=== PATIENT | female | born 1955 | race Caucasian/White ===

== ENCOUNTER 2020-03-01 01:58 | Outpatient (CLI) | payer MEDICARE, SELFPAY ==
[2020-03-01 17:59] LABS: SARS-CoV-2 RNA PCR Negative
== END 2020-03-01 01:59 | disposition home or self-care (01) ==
LOC: ANHCOVIDDT 01:59
PROVIDERS: PCP Internal Medicine; Visit Provider Internal Medicine Gastroenterology
DX: Z01.812 Encounter for preprocedural laboratory examination (principal); Z20.828 Contact with and (suspected) exposure to other viral communicable diseases
CPT/HCPCS: 87635; C9803; U0003

== ENCOUNTER 2020-03-04 00:30 | Day surgery (SDC) | payer MEDICARE, SELFPAY ==
[2020-02-27 13:48] VITALS: BMI 36.3
[2020-03-04 07:28] VITALS: BP 160/73; PULSE 102; RESP 18; TEMP 36.8; O2SAT 99
[2020-03-04 07:35] LABS: Glucose Point of Care 83 (65-105)
[2020-03-04] MEDS: LACTATED RINGERS 1,000 ML 150 ML IV CONT (07:40)
--- NOTE | 2020-03-04 07:56 | WPDGICN ---
Assessment and Plan Assessment and plan (1) History of colon polyps: Code(s): Z86.010 - Personal history of colonic polyps Status: Acute Assessment and Plan: Patient had several colon polyps at least 1 of which was rather large in size plan is for surveillance colonoscopy at this time. She also has a family history of colon polyps in her sister and uncle had colon cancer. Continued surveillance at intervals in the future is advised. GI Consult Note Consult date/time: 03/04/20 07:56 HPI: Jaimee Grimm is a 65 year old female Seen in evaluation at the request Dr. Jorge Luis Pollack. Patient has a history of colon polyps identified by colonoscopy in 2018. At that time found to have several adenomatous colon polyps. At least 1 of these polyps was rather large in size. Her family history is significant that her sister had colon polyps in uncle had colon cancer. Patient states that her current weight appetite bowel movements are normal. She denies abdominal pain. She has had no bleeding. PMFSH Social History Social History Smoking packs per day: 0.5 Smoking cigarettes per day: 10.0 Years smoked: 5 Smoking pack-years: 2.50 Smoking status: Former smoker Tobacco type: cigarettes Alcohol intake: current Drinks per week: 0 Alcohol use details: MAY HAVE 1 DRINK EVERY COUPLE OF MONTHS Substance use: never Substance use type: does not use Living arrangements: with family Spiritual care concerns: No Meds Home Medications and Allergies Home Medications Medication Instructions Recorded Confirmed Type aspirin [Adult Low Dose Aspirin] 81 mg PO DAILY 02/27/20 03/04/20 History atorvastatin 40 mg PO DAILY 02/27/20 03/04/20 History biotin 2,500 mcg PO DAILY 02/27/20 03/04/20 History lisinopril 10 mg PO DAILY 02/27/20 03/04/20 History mecobalamin (vitamin B12) 500 mcg PO DAILY 02/27/20 03/04/20 History metformin 500 mg PO BID 02/27/20 03/04/20 History Allergies Allergy/AdvReac Type Severity Reaction Status Date / Time Penicillins Allergy Unknown UNKNOWN Verified 03/04/20 07:25 Vital Signs Vital Signs - 24 hr 03/04/20 07:28 Temperature 98.2 F Pulse Rate 102 H Respiratory Rate 18 Blood Pressure 160/73 H Pulse Oximetry 99 Exam Narrative: Exam Narrative: Physical exam reveals patient to be alert. Vital signs stable. HEENT exam unremarkable. Lungs are clear to auscultation and percussion. Heart is without murmur or extra sounds. Abdominal exam bowel sounds are present soft nontender with no organomegaly. Digital external rectal exam is normal.
--- NOTE | 2020-03-04 08:12 | WPDANESEPPF ---
Anes - Initial Pre Proc Eval Procedure: Operation Date: 03/04/20 08:30 Proposed Procedures p Screening Colonoscopy - Vishal Macias MD Date/Time: 03/04/20 08:12 Surgeon: Vishal Macias MD Pre Op Diagnosis: Hx Of Colon Polyps Patient Data Age: 65 Gender: F Height: 5 ft 6 in Weight: 102.6 kg Last Vital Signs Temp 98.2 F 03/04/20 07:28 Pulse 102 H 03/04/20 07:28 Resp 18 03/04/20 07:28 BP 160/73 H 03/04/20 07:28 Pulse Ox 99 03/04/20 07:28 Allergies Allergy/AdvReac Type Severity Reaction Status Date / Time Penicillins Allergy Unknown UNKNOWN Verified 03/04/20 07:25 Home Medications Medication Instructions Recorded Confirmed Type aspirin [Adult Low Dose Aspirin] 81 mg PO DAILY 02/27/20 03/04/20 History atorvastatin 40 mg PO DAILY 02/27/20 03/04/20 History biotin 2,500 mcg PO DAILY 02/27/20 03/04/20 History lisinopril 10 mg PO DAILY 02/27/20 03/04/20 History mecobalamin (vitamin B12) 500 mcg PO DAILY 02/27/20 03/04/20 History metformin 500 mg PO BID 02/27/20 03/04/20 History Laboratory Tests 03/04/20 07:33 POC Capillary Glucose 83 mg/dl mg/dl (65-105) Patient hx anesthesia problems: none Family hx anesthesia problems: none PMFSH Past Medical History Medical History (Updated 03/04/20 @ 08:15 by Lonnie Carballo MD) Breast cancer, left breast history of in the past CAD (coronary artery disease) Hyperlipidemia Hypertension Surgical History Surgical History (Updated 03/04/20 @ 08:15 by Lonnie Carballo MD) Stented coronary artery Social History Social History Smoking packs per day: 0.5 Smoking cigarettes per day: 10.0 Years smoked: 5 Smoking pack-years: 2.50 Smoking status: Former smoker Tobacco type: cigarettes Alcohol intake: current Drinks per week: 0 Alcohol use details: MAY HAVE 1 DRINK EVERY COUPLE OF MONTHS Substance use: never Substance use type: does not use Living arrangements: with family Spiritual care concerns: No Anes - Eval Final PreProcedure Day of Procedure 10/06/20 08:12 Patient weight: obese Heart: regular rate and rhythm Lungs: clear to auscultation Airway: Mallampati scale class II Neurological: alert and oriented Last oral intake: >/= 8 hours ASA classification: III Emergent: no Anesthetic plan: proceed Anesthesia type and monitoring: general GIVS and standard monitoring Informed Consent: The patient's anesthetic plan and its attendant risks and benefits were discussed with the patient/family/POA. Questions were solicited and answers provided to the satisfaction of the patient/family/POA.
[2020-03-04 09:01] VITALS: BP 96/52; PULSE 77; RESP 19; O2SAT 98
[2020-03-04 09:11] VITALS: BP 104/49; PULSE 71; RESP 19; O2SAT 98
[2020-03-04 09:21] VITALS: BP 139/75; PULSE 72; RESP 16; O2SAT 98
== END 2020-03-04 09:39 | disposition home or self-care (01) ==
PROVIDERS: PCP Internal Medicine; Visit Provider Internal Medicine Gastroenterology
PROC: 0DJD8ZZ Inspection of Lower Intestinal Tract, Via Natural or Artificial Opening Endoscopic (ICD-10-PCS; CPT 45378; principal; 2020-03-04 08:30)
DX: Z12.11 Encounter for screening for malignant neoplasm of colon (principal); K64.8 Other hemorrhoids; I25.10 Atherosclerotic heart disease of native coronary artery without angina pectoris; E78.5 Hyperlipidemia, unspecified; I10 Essential (primary) hypertension; Z95.5 Presence of coronary angioplasty implant and graft; Z87.891 Personal history of nicotine dependence; Z85.3 Personal history of malignant neoplasm of breast; Z86.010 Personal history of colon polyps; Z83.71 Family history of colonic polyps; E66.9 Obesity, unspecified; Z68.36 Body mass index [BMI] 36.0-36.9, adult
CPT/HCPCS: G0105; J2704; J7120

== ENCOUNTER 2021-03-27 01:16 | Day surgery (SDC) | payer MEDICARE, SELFPAY ==
[2021-03-19 11:00] VITALS: BMI 37.0
[2021-03-27 11:50] VITALS: BP 155/84; PULSE 79; RESP 17; TEMP 35.9; O2SAT 96; BMI 37.7
--- NOTE | 2021-03-27 11:53 | WPDANESEPPF ---
Anes - Initial Pre Proc Eval Procedure: Operation Date: 03/27/21 13:00 Proposed Procedures p Esophagogastroduodenoscopy - Vishal Macias MD Date/Time: 03/27/21 11:53 Surgeon: Vishal Macias MD Pre Op Diagnosis: URQP Patient Data Age: 66 Gender: F Height: 1.68 m Weight: 106 kg Last Vital Signs Temp 35.9 C L 03/27/21 11:50 Pulse 79 03/27/21 11:50 Resp 17 03/27/21 11:50 BP 155/84 H 03/27/21 11:50 Pulse Ox 96 03/27/21 11:50 Allergies Allergy/AdvReac Type Severity Reaction Status Date / Time Penicillins Allergy Unknown UNKNOWN Verified 03/27/21 11:49 Home Medications Medication Instructions Recorded Confirmed Type aspirin [Adult Low Dose Aspirin] 81 mg PO DAILY 02/27/20 03/27/21 History atorvastatin 40 mg PO DAILY 02/27/20 03/27/21 History biotin 2,500 mcg PO DAILY 02/27/20 03/27/21 History lisinopril 10 mg PO DAILY 02/27/20 03/27/21 History mecobalamin (vitamin B12) 500 mcg PO DAILY 02/27/20 03/27/21 History metformin 500 mg PO BID 02/27/20 03/27/21 History omeprazole 20 mg PO BID 03/19/21 03/27/21 History Patient hx anesthesia problems: none Family hx anesthesia problems: none Results Review: All pre-operative results and documents have been reviewed as part of the pre-operative evaluation. [facility] Past Medical History Medical History Breast cancer, left breast history of in the past CAD (coronary artery disease) Hyperlipidemia Hypertension Surgical History Surgical History Stented coronary artery Social History Social History Smoking packs per day: 0.5 Smoking cigarettes per day: 10.0 Years smoked: 5 Smoking pack-years: 2.50 Smoking status: Former smoker Tobacco type: cigarettes Alcohol intake: current Drinks per week: 0 Alcohol use details: MAY HAVE 1 DRINK EVERY COUPLE OF MONTHS Substance use: never Substance use type: does not use Living arrangements: alone Spiritual care concerns: No Anes - Eval Final PreProcedure Day of Procedure 03/27/21 11:53 Patient weight: obese Heart: regular rate and rhythm Lungs: clear to auscultation Airway: Mallampati scale class II Neurological: alert and oriented Last oral intake: >/= 8 hours ASA classification: III Emergent: no Anesthetic plan: proceed Anesthesia type and monitoring: general GIVS and standard monitoring Results Review: All pre-operative results and documents have been reviewed as part of the pre-operative evaluation. Informed Consent: The patient's anesthetic plan and its attendant risks and benefits were discussed with the patient/family/POA. Questions were solicited and answers provided to the satisfaction of the patient/family/POA.
[2021-03-27] MEDS: LACTATED RINGERS 1,000 ML 150 ML IV CONT (11:54)
[2021-03-27 11:58] LABS: Glucose Point of Care 81 mg/dl (65-105)
--- NOTE | 2021-03-27 12:11 | WPDGICN ---
Assessment and Plan Assessment and plan (1) RUQ pain: Code(s): R10.11 - Right upper quadrant pain Status: Acute Assessment and Plan: Patient has burning right upper quadrant pain that has been present for several weeks. Agree with trial of omeprazole. A bland diet. An EGD will be performed because of prior history of inflammation in this area. Further recommendations will be given after endoscopy. She does have a distant history of cholecystectomy. (2) History of colon polyps: Code(s): Z86.010 - Personal history of colonic polyps Status: Acute Assessment and Plan: Colon polyps removed from the colon 2019. Anticipate follow-up colonoscopy at 5 year intervals. Expected to have a follow-up colonoscopy 2024. GI Consult Note Consult date/time: 03/27/21 12:11 HPI: Jaimee Grimm is a 66 year old female Presents for EGD. Patient seen at the request of Dr. Radha Aden. Patient reports a 2 week history of right upper quadrant abdominal pain. She states pain is somewhat burning in nature. She states she had similar pain in the past. Endoscopy Dr. White revealed inflammation. It is uncertain where the inflammation was located. Patient was placed on omeprazole with good improvement of symptoms. Patient currently has restarted proton pump inhibitor therapy with incomplete resolution of her burning pain. She denies any specific findings. She does have a distant history of cholecystectomy. One year ago had a colonoscopy and was found to have colon polyps. She presents today for EGD. Review of Systems Review of Systems: All systems reviewed & are unremarkable except as noted in HPI and below PMFSH Past Medical History Medical History Breast cancer, left breast history of in the past CAD (coronary artery disease) Hyperlipidemia Hypertension Surgical History Surgical History Stented coronary artery Social History Social History Smoking packs per day: 0.5 Smoking cigarettes per day: 10.0 Years smoked: 5 Smoking pack-years: 2.50 Smoking status: Former smoker Tobacco type: cigarettes Alcohol intake: current Drinks per week: 0 Alcohol use details: MAY HAVE 1 DRINK EVERY COUPLE OF MONTHS Substance use: never Substance use type: does not use Living arrangements: alone Spiritual care concerns: No Meds Home Medications and Allergies Home Medications Medication Instructions Recorded Confirmed Type aspirin [Adult Low Dose Aspirin] 81 mg PO DAILY 02/27/20 03/27/21 History atorvastatin 40 mg PO DAILY 02/27/20 03/27/21 History biotin 2,500 mcg PO DAILY 02/27/20 03/27/21 History lisinopril 10 mg PO DAILY 02/27/20 03/27/21 History mecobalamin (vitamin B12) 500 mcg PO DAILY 02/27/20 03/27/21 History metformin 500 mg PO BID 02/27/20 03/27/21 History omeprazole 20 mg PO BID 03/19/21 03/27/21 History Allergies Allergy/AdvReac Type Severity Reaction Status Date / Time Penicillins Allergy Unknown UNKNOWN Verified 03/27/21 11:49 Vital Signs Vital Signs - 24 hr 03/27/21 11:50 Temperature 96.7 F L Pulse Rate 79 Respiratory Rate 17 Blood Pressure 155/84 H Pulse Oximetry 96 Exam Narrative: Physical exam reveals patient to be alert. Vital signs stable. HEENT exam is unremarkable. Patient is anicteric. Lungs are clear to auscultation and percussion. Heart is without murmur or extra sounds. Abdomen is bowel sounds are present soft no localized tenderness no masses elicited. Digital rectal exam deferred today.
[2021-03-27 12:25] VITALS: BP 108/61; PULSE 74; RESP 18; O2SAT 99
[2021-03-27 12:35] VITALS: BP 127/67; PULSE 79; RESP 22; O2SAT 99
[2021-03-27 12:45] VITALS: BP 111/64; PULSE 81; RESP 22; O2SAT 81
== END 2021-03-27 12:56 | disposition home or self-care (01) ==
PROVIDERS: PCP Internal Medicine; Visit Provider Internal Medicine Gastroenterology
PROC: 0DJ08ZZ Inspection of Upper Intestinal Tract, Via Natural or Artificial Opening Endoscopic (ICD-10-PCS; CPT 43235; principal; 2021-03-27 13:00)
DX: R10.11 Right upper quadrant pain (principal); I10 Essential (primary) hypertension; Z86.010 Personal history of colon polyps; Z85.3 Personal history of malignant neoplasm of breast; Z95.5 Presence of coronary angioplasty implant and graft; Z87.891 Personal history of nicotine dependence; Z90.49 Acquired absence of other specified parts of digestive tract; Z79.899 Other long term (current) drug therapy; Z79.82 Long term (current) use of aspirin
CPT/HCPCS: 43239; 82948; 87081; J2001; J2704; J7120

== ENCOUNTER 2024-12-31 00:32 | Day surgery (SDC) | payer MEDICARE, SELFPAY ==
[2024-12-24 15:05] VITALS: BMI 38.7
--- NOTE | 2024-12-24 15:06 | PC.NURSE ---
Report to the Outpatient Waiting Room, entrance under the green pavilion located off [facility], at time _2pm_ on date _[id number]_. Planned Procedure Time: _3pm_.? Time changes happen often and if your time is changed the preop area will call you the afternoon before. - You and your visitor will be asked to self-screen and do not enter if you have any COVID symptoms. Please call surgeon if you need to reschedule. - A mask is optional within the hospital at this time. No smoking, or chewing tobacco (or any form of nicotine). Ok for breakfast and light lunch. Take only the following medications with a SIP of water on the morning of surgery: ___Medications OK____ DO NOT STOP ANY OF YOUR OTHER PRESCRIPTION MEDICATIONS PRIOR TO SURGERY EXCEPT THE FOLLOWING Hold all vitamins and supplements for 3 days per anesthesiologist. Medications to discontinue per physician Date to take last dose Please no make-up, nail romanian, hairspray, perfume, deodorant, or body powder the day of surgery.? No jewelry (including any body piercings) or valuables the day of surgery, leave them at home.? Please take a shower or bath the night before, or the morning of, surgery with an antibacterial soap.? Wear comfortable, loose fitting clothing.? - Jewelry must be removed prior to entering the operating room.? Rings and piercings that are not removed may be cut off. - The hospital will not accept responsibility for valuables.? - Please leave all valuables, including medications, at home the day of surgery. OK to drive. Follow any additional instructions given to you from your surgeon. Telephone instructions given to __Angeliady___and asked if any additional questions and then verbalized understanding. Patient advised to call surgeon office or pre surgery nurse liaison [phone] if any additional questions.
[2024-12-31] VITALS (7 sets, daily range): BP systolic 152–193; BP diastolic 61–88; PULSE 83–98; RESP 12–20; TEMP 37; O2SAT 97–99; BMI 39.1
--- NOTE | 2024-12-31 15:15 | WPDHPUPDATE1 ---
History and Physical Update Update Date/Time: 12/31/24 15:15 History and Physical has been reviewed, including an updated exam of the patient. There are NO changes in the patient's condition. Risks, benefits, and alternatives have been discussed and questions answered. Patient agrees to proceed with procedure.
[2024-12-31] MEDS: LIDO 1%/EPINEPHRINE 1:100,000 50 ML VIAL 30 ML INFILTRATE (15:17)
--- NOTE | 2024-12-31 15:41 | S_PTH ---
PATIENT: Jaimee Grimm LOC: [facility]#:[id number] AGE/SX: 69/F ROOM: RE12/31/[address]: Mata Kincaid MD : [id number] BED: DIS: 12/31/2024 SPEC #: [id number] RECD: 01/01/25 08:18 STATUS: AMADOR REQ #: [id number] SANTHOSH: 12/31/24 15:[address]: Mata Kincaid DEPT: [facility] Surgical RECD BY: Ravin Hayes ENTERED: 01/01/25 08:19 SP TYPE: Surgical OTHR DR: Carlos PollackMD Tissues: A - Skin Procedures: Hematoxylin and Eosin Stain Gross and Microscopic Level 4
--- NOTE | 2024-12-31 16:27 | W.PM.PROC2 ---
Procedure Note - Detailed Date of Procedure 12/31/24 Pre-op Diagnosis Right lower leg skin lesion Post-op Diagnosis Same Procedure Performed Excision right lower extremity skin lesion with 5cm intermediate layered wound closure. Surgeon Mata Kincaid MD Anesthesia Local Indications Patient is a 69-year-old female who for last couple of months has been having a slowly enlarging skin lesion on the right anterior mid tibia region. It has some superficial irritation but no obvious ulceration. She presents now for excision. Findings Patient 1.3x1cm well-circumscribed skin lesion in the mid tibia region. I excised it with a minimum of 0.3cm circumferential margin. Description of Procedure After informed consent was obtained patient brought to the operating room she was placed supine position and then the right lower extremity from the knee to the ankle was then prepped in the usual sterile fashion. A time-out was then performed correctly identifying the patient as well as procedure to be performed. Site marking was identified. She was not given any IV antibiotics due to no IV being started. I then anesthetized the area around the skin lesion utilizing 1% lidocaine mixed with 0.5% Marcaine 50 50 mixture with some epinephrine. Once adequate anesthesia had been achieved I then proceeded to make a transverse elliptical incision around the skin lesion. I made sure that I had at least a 0.3cm minimal circumferential margin around the skin lesion. The skin lesion measured 1.3x1cm. The initial excision was carried deeply down through the dermis of the skin and the subcutaneous tissues. Then utilized electrocautery I completely excised off the ellipse of skin and subcutaneous tissues encompassing the whole skin lesion. It was sent to pathology for examination. Then achieved hemostasis in the wound utilized electrocautery. Then irrigated sterile saline solution. Hemostasis was good. I then proceeded to close incision with a multilayered intermediate layered wound closure. Interrupted layers of 2-0 Vicryl suture placed in deeper subcutaneous tissues. This is then followed by layers of interrupted 3-0 Vicryl suture in the deep dermal layer. The skin edges were then approximated utilizing a running subcuticular 4-0 Monocryl suture. The length of the skin in closure was 5cm. Areas then cleaned the skin glue was applied. The patient tolerated the procedure well no complications. All sponges, needles, and instrument counts were correct at the end procedure. EBL was __5_cc. The patient was awakened and taken to recovery in stable and satisfactory condition. Implants None Estimated Blood Loss 5 Drains No Packing No Pathology Yes (Right lower extremity skin lesion to pathology) Complications No immediate complications Condition Stable Disposition PACU [facility] Billing Surgery - Charge Forward: Surgery Billing
== END 2024-12-31 16:35 | disposition home or self-care (01) ==
PROVIDERS: PCP Internal Medicine; Visit Provider Surgery
PROC: (CPT 11402; principal; 2024-12-31 14:45)
DX: C44.722 Squamous cell carcinoma of skin of right lower limb, including hip (principal); L57.8 Other skin changes due to chronic exposure to nonionizing radiation; L30.8 Other specified dermatitis; E78.5 Hyperlipidemia, unspecified; I10 Essential (primary) hypertension; E11.9 Type 2 diabetes mellitus without complications; I25.10 Atherosclerotic heart disease of native coronary artery without angina pectoris; Z79.84 Long term (current) use of oral hypoglycemic drugs; Z98.890 Other specified postprocedural states; Z87.891 Personal history of nicotine dependence; Z85.3 Personal history of malignant neoplasm of breast; Z80.9 Family history of malignant neoplasm, unspecified; Z82.49 Family history of ischemic heart disease and other diseases of the circulatory system
CPT/HCPCS: 11402; 12032; 88305; A9270; J2004

== ENCOUNTER 2025-04-05 00:38 | Day surgery (SDC) | payer MEDICARE, SELFPAY ==
[2025-04-03 14:45] VITALS: BMI 39.9
--- OUTSIDE RECORDS SUMMARY | 2025-04-05 00:41 | XMS_ITS | Data Portability ---
Author Organization [place] [facility] [employer], Main Office Address [address] [place] [address] Assessment Encounter Date Assessment Date Assessment LastModified by Organization Details LastModified Time 09/15/2023 09/15/2023 The patient has moderately severe primary osteoarthritis right knee a little less so on the left knee with narrowing in the medial compartments mostly. We talked about treatment options today in detail for her right knee pain she wanted to proceed with an oral anti-inflammatory we will get her set up with Celebrex 200 mg a day. She also wanted try a shot of cortisone therefore under sterile conditions I injected the patient's right knee joint in the office with 4 cc 0.5% bupivacaine and 20 mg of Kenalog. Patient tolerated the procedure well. We did talk about the possibility of gel shots these worked very well for her many years ago. I have advised her to give this 6 weeks or so see how she does with the cortisone if her symptoms continue we could consider gel shots she would have to give us a call let us know what she wants to do. We could do cortisone again every 3 months if necessary as well. The patient voiced understanding and agrees with the above plan she will call for any further problems difficulties or questions. [email or web address] Not available 09/15/2023 13:57:40 Plan of Treatment Reminders Order Date Submit Date Provider Last Modified By Organization Details Last Modified Time Details Appointments None recorded. Lab vitamin D, 25-hydroxy, total, serum 2024 025 [email or web address] [facility], [address] [facility], [place], [address], 18:32:01 HbA1c (hemoglobin A1c), blood 2024 025 [email or web address] [facility], [address], [place], [address], 18:32:01 microalbumi n, urine 2024 025 [email or web address] [facility], [address], [place], [address], 18:32:01 lipid panel, serum 2024 025 [facility], [address], [place], [address], 18:32:00 TSH, ultra-sensi tive, serum 2024 025 [email or web address] [facility], [address] [facility], [place], [address], 18:32:00 unlisted lab - T4, free 2024 025 [email or web address] [facility], [address] [facility], [facility], [place], [address], 18:32:00 CMP, serum or plasma 2024 025 [facility], [address] [facility], [facility], [place], [address], 18:32:00 CBC w/ auto diff 2024 025 [email or web address] [facility], [address], [place], [address], 18:32:00 HbA1c (hemoglobin A1c), blood 2024 025 HONEY [facility], [address], [place], [address], 10:44:00 TSH, ultra-sensi tive, serum 2024 025 HONEY [facility], [address] [facility], [facility], [place], [address], 5 10:44:01 unlisted lab - T4, free 2024 025 HONEY [facility], [address] [facility], [facility], [place], [address], 5 10:44:03 CBC w/ auto diff 2024 025 HONEY [facility], [address] [facility], [facility], [place], [address], 5 10:43:56 CMP, serum or plasma 2024 025 HONEY [facility], [address] [facility], [facility], [place], [address], 5 10:43:58 lipid panel, serum 2024 025 HONEY [facility], [address] [facility], [facility], [place], [address], 10:43:59 Referral None recorded. Procedures injection/a spiration joint/bursa (PROC) 2023 024 [email or web address] In-Office Order, Internal Use Only DO Not Attach Compendium DO Not Attach Compendium, Do Not Delete/merge, [id number] 4 13:41:01 Surgeries None recorded. Imaging XR, knee 2023 024 [email or web address] [facility] [place], [address], [place], [address], 4 15:49:54 Medication Orders Bactrim DS 800 mg-160 mg tablet 2024 025 L[facility]ANE [id number], [address], [place], [id number], 5 15:57:29 celecoxib 200 mg capsule 2023 [address] [facility] [id number], 2 [facility], [place], [place], [id number], 5 11:36:02 bupivacaine HCl 0.5 % (5 mg/mL) injection solution [address] [id number], [address], [place], [place], [id number], 5 11:35:59 Kenalog 10 mg/mL suspension for injection [address] [id number], 2 [facility], [place], [place], [id number], 5 11:36:06 Patient TargetsNo targets recorded. Patient Instructions Encounter Date Encounter Id Patient Instructions Last Modified By Organization Details Last Modified Time 02/28/2024 [id number] dementia rating scale-2* [email or web address] Not available 02/29/2024 09:02:03 alcohol misuse* [email or web address] Not available 02/29/2024 09:02:03 depression screening* Not available 02/29/2024 09:02:03 multi-dimensiona l health assessment questionnaire* [email or web address] Not available 02/29/2024 09:02:03 Personalized [facility] Plan and Screening Recommendations Advance Directives - Do you have one? Yes Advance Directives - Do we have your advance directive on file in your health record? No, please bring in a copy at your earliest convenience Primary Prevention/Interven tion (prevents or decreases the chance of common diseases from occurring) Smoking Risk: Non Smoker Alcohol Misuse Screening: Negative Weight: Overweight try to lose 10% of your body weight Physical activity: Need more exercise/physical activity Nutrition: Average Eat heart healthy diet Fall Risk (screened today): Low Vaccines Pneumococcal: No further needed Influenza: Your next one in the fall of this year Chronic Disease Risks Stroke: Intermediate Risk Active diagnosis, Continue current treatment plan Heart Attack: Intermediate Risk Active diagnosis, Continue current treatment plan Clogging of the Arteries: Intermediate Risk Active diagnosis, Continue current treatment plan Diabetes: Intermediate Risk Active diagnosis, Continue current treatment plan Secondary Prevention/Interven tion (detects treatable diseases before they may cause symptoms, disability, or ) Breast Cancer Screening with mammogram: No screening necessary Cervical/Uterine/Ov crispin Cancer Screening: No screening necessary Osteoporosis Screening: up to date Date Screening Last Performed: __2022 Colon Cancer Screening: Colonoscopy due 2024 Date Screening Last Performed: _2019___ Eye Disease Screening: Your next exam in: goes yearly Dementia Risk: Low I have no recommendations Depression Screening: Negative I have no recommendations [email or web address] Not available 02/28/2024 10:53:14 [facility] stable. Follow-up for coronary artery disease, essential hypertension, type 2 diabetes, GERD and obesity class two. Switching the lisinopril to losartan 25 mg daily. All clinically stable. Will continue with current Rx and check blood work GERD follow-up in six months Follow Up: 6 Months Approximate Date: 08/26/2024 Portions of the record may have been created with voice recognition software. Occasional wrong-word or s ound-a-like substitutions may have occurred due to the inherent limitations of voice recognition software. Read the chart carefully and recognize, using context, where substitutions have occurred. [email or web address] Not available 02/28/2024 17:28:50 09/25/2024 [id number] Follow-up miguel ry artery disease, essential hypertension, hyperlipidemia, type 2 diabetes all clinically stable. Will switch from the semaglutide to Mounjaro to see if there is any improvement and better tolerated. Started 2.5 mg weekly. Will check a CBC, CMP, lipid, thyroid and hemoglobin A1c level. Follow-up in six months Additional Orders - Directives - Recommendations 1. have Shaista make out a script for Mounjaro 2.5 mg once weekly Follow Up: 6 Months Approximate Date: 03/24/2025 Portions of record are template driven. When necessary additional context will be provided. Additionally some portions have been created with voice recognition software. Occasional wrong-word or s ound-a-like substitutions may have occurred due to the inherent limitations of voice recognition software. Read the chart carefully and recognize, using context, where substitutions may have occurred. Created: Carlos Pollack M.D. 09.25.2024 10:55 AM [email or web address] Not available 09/25/2024 11:55:51 12/03/2024 [id number] Probable cyst ri ght lower leg with some surrounding erythema possibly suggesting some mild infection. Will cover with some Bactrim DS one b.i.d.. Instructed patient there is no improvement will need to consider surgical excision of the area Keep Appointment: Tue 10:00 AM [place] Portions of record are template driven. When necessary additional context will be provided. Additionally some portions have been created with voice recognition software. Occasional wrong-word or s ound-a-like substitutions may have occurred due to the inherent limitations of voice recognition software. Read the chart carefully and recognize, using context, where substitutions may have occurred. Created: Carlos Pollack M.D. 12.03.2024 02:57 PM [email or web address] Not available 12/03/2024 15:57:33 03/26/2025 [id number] Medicare [facility] evaluation risk assessment stable. Follow-up for coronary artery disease, hypertension, hyperlipidemia, type 2 diabetes, check blood work consisting of CBC, CMP, lipid, thyroid B12 and vitamin-D level. Will continue on current Rx and follow-up in six months Advised on FDA Recommended Immunizations including but not limited to Influenza, COVID,Tetanus,TDAP, Pneumococcal,RSV and Shingles Additional Orders - Directives - Recommendations Recommended Testing 1. DEXA Scan 2. Colonoscopy Immunizations and Vaccines 1. 2023-01 INFLUENZA 2. 2021-03 COVID BOOSTER MODERNA 3. PCV20 or PCV21 Recommended 4. RSV Recommended 5. Shingrix Recommended 6. Tetanus or TD Recommended Recommended Vaccine and Immunizations Discussed With Patient! Follow Up: 6 Months Approximate Date: 09/22/2025 Portions of record are template driven. When necessary additional context will be provided. Additionally some portions have been created with voice recognition software. Occasional wrong-word or s ound-a-like substitutions may have occurred due to the inherent limitations of voice recognition software. Read the chart carefully and recognize, using context, where substitutions may have occurred. Created: Carlos Pollack M.D. 03.26.2025 10:30 AM [email or web address] Not available 03/26/2025 11:30:24 Reason for Referral None Reported. Results Created Date Observation Date Name Description Value Unit Range Abnormal Flag Note LastModifiedBy Organization Detail LastModifiedTime 09/26/19 25 09/26/2024 CBC WITH DIFFE RENTI AL/PL ATELE T WBC 8.4 x10e3 /uL 3.4-10 .8 normal Not Available [facility] [address] [facility], [place], [address], 09/26/2024 10:43:56 09/26/19 25 09/26/2024 CBC WITH DIFFE RENTI AL/PL ATELE T RBC 4.55 x10e6 /uL 3.77-5 .28 normal Not Available [facility] [address] [facility], [place], [address], 09/26/2024 10:43:56 09/26/19 25 09/26/2024 CBC WITH DIFFE RENTI AL/PL ATELE T hemoglobin 12.9 g/dL 11.1-1 5.9 normal Not Available [facility] [address] [facility], [place], [address], 09/26/2024 10:43:56 09/26/19 25 09/26/2024 CBC WITH DIFFE RENTI AL/PL ATELE T hematocrit 40.8 % 34.0-4 6.6 normal Not Available [facility]) [address] [place], [address], 09/26/2024 10:43:56 09/26/19 25 09/26/2024 CBC WITH DIFFE RENTI AL/PL ATELE T MCV 90 fL 79-97 normal Not Available [facility] [address] [place], [address], 09/26/2024 10:43:56 09/26/19 25 09/26/2024 CBC WITH DIFFE RENTI AL/PL ATELE T MCH 28.4 pg 26.6-3 3.0 normal Not Available [facility] [address] [facility], [place], [address], 09/26/2024 10:43:56 09/26/19 25 09/26/2024 CBC WITH DIFFE RENTI AL/PL ATELE T MCHC 31.6 g/dL 31.5-3 5.7 normal Not Available [facility] [address] [facility], [place], [address], 09/26/2024 10:43:56 09/26/19 25 09/26/2024 CBC WITH DIFFE RENTI AL/PL ATELE T RDW 13.1 % 11.7-1 5.4 Not Available [facility] [address] [facility], [place], [address], 09/26/2024 10:43:56 09/26/19 25 09/26/2024 CBC WITH DIFFE RENTI AL/PL ATELE T platelets 321 x10e3 /uL 150-45 0 normal Not Available [facility] [address] [facility], [place], [address], 09/26/2024 10:43:56 09/26/19 25 09/26/2024 CBC WITH DIFFE RENTI AL/PL ATELE T neutrophils 58 % not estab. normal Not Available [facility] [address] [facility], [place], [address], 09/26/2024 10:43:56 09/26/19 25 09/26/2024 CBC WITH DIFFE RENTI AL/PL ATELE T lymphs 31 % not estab. normal Not Available [facility] [address] [facility], [place], [address], 09/26/2024 10:43:56 09/26/19 25 09/26/2024 CBC WITH DIFFE RENTI AL/PL ATELE T monocytes 8 % not estab. normal Not Available [facility] [address] [place], [address], 09/26/2024 10:43:56 09/26/19 25 09/26/2024 CBC WITH DIFFE RENTI AL/PL ATELE T eos 2 % not estab. normal Not Available [facility] [address] [place], [address], 09/26/2024 10:43:56 09/26/19 25 09/26/2024 CBC WITH DIFFE RENTI AL/PL ATELE T basos 0 % not estab. normal Not Available [facility] [address] [place], [address], 09/26/2024 10:43:56 09/26/19 25 09/26/2024 CBC WITH DIFFE RENTI AL/PL ATELE T immature cells EMERGENCY ROOM NURSE Not Available [facility] [address] [place], [address], 09/26/2024 10:43:56 09/26/19 25 09/26/2024 CBC WITH DIFFE RENTI AL/PL ATELE T neutrophils (absolute) 5.0 x10e3 /uL 1.4-7. 0 normal Not Available [facility] [address] [place], [address], 09/26/2024 10:43:56 09/26/19 25 09/26/2024 CBC WITH DIFFE RENTI AL/PL ATELE T lymphs (absolute) 2.6 x10e3 /uL 0.7-3. 1 normal Not Available [facility] [address] [place], [address], 09/26/2024 10:43:56 09/26/19 25 09/26/2024 CBC WITH DIFFE RENTI AL/PL ATELE T monocytes(ab solute) 0.7 x10e3 /uL 0.1-0. 9 normal Not Available [facility] [address] [place], [address], 09/26/2024 10:43:56 09/26/19 25 09/26/2024 CBC WITH DIFFE RENTI AL/PL ATELE T eos (absolute) 0.1 x10e3 /uL 0.0-0. 4 normal Not Available [facility] [address] [facility], [place], [address], 09/26/2024 10:43:56 09/26/19 25 09/26/2024 CBC WITH DIFFE RENTI AL/PL ATELE T baso (absolute) 0.0 x10e3 /uL 0.0-0. 2 normal Not Available [facility] [address] [facility], [place], [address], 09/26/2024 10:43:56 09/26/19 25 09/26/2024 CBC WITH DIFFE RENTI AL/PL ATELE T immature granulocytes 1 % not estab. Not Available [facility] [address] [facility], [place], [address], 09/26/2024 10:43:56 09/26/19 25 09/26/2024 CBC WITH DIFFE RENTI AL/PL ATELE T immature grans (abs) 0.0 x10e3 /uL 0.0-0. 1 Not Available [facility] [address] [facility], [place], [address], 09/26/2024 10:43:56 09/26/19 25 09/26/2024 CBC WITH DIFFE RENTI AL/PL ATELE T NRBC EMERGENCY ROOM NURSE Not Available [facility] [address] [facility], [place], [address], 09/26/2024 10:43:56 09/26/19 25 09/26/2024 CBC WITH DIFFE RENTI AL/PL ATELE T hematology comments: EMERGENCY ROOM NURSE Not Available [facility] [address] [place], [address], 09/26/2024 10:43:56 09/26/19 25 09/26/2024 COMP. METAB OLIC PANEL (14) glucose 96 mg/dL 70-99 normal Not Available [facility] [address] [place], [address], 09/26/2024 10:43:58 09/26/19 25 09/26/2024 COMP. METAB OLIC PANEL (14) BUN 14 mg/dL 8-27 normal Not Available [facility] [address] [place], [address], 09/26/2024 10:43:58 09/26/19 25 09/26/2024 COMP. METAB OLIC PANEL (14) creatinine 0.69 mg/dL 0.57-1 .00 normal Not Available [facility] [address] [place], [address], 09/26/2024 10:43:58 09/26/19 25 09/26/2024 COMP. METAB OLIC PANEL (14) eGFR 93 mL/mi n/1.7 3 >59 normal Not Available [facility] [address] [place], [address], 09/26/2024 10:43:58 09/26/19 25 09/26/2024 COMP. METAB OLIC PANEL (14) BUN/creatini ne ratio 20 12-28 normal Not Available [facility] [address] [place], [address], 09/26/2024 10:43:58 09/26/19 25 09/26/2024 COMP. METAB OLIC PANEL (14) sodium 142 mmol/ L 134-14 4 normal Not Available [facility] [address] [place], [address], 09/26/2024 10:43:58 09/26/19 25 09/26/2024 COMP. METAB OLIC PANEL (14) potassium 5.0 mmol/ L 3.5-5. 2 normal Not Available [facility] [address] [place], [address], 09/26/2024 10:43:58 09/26/19 25 09/26/2024 COMP. METAB OLIC PANEL (14) chloride 103 mmol/ L 96-106 normal Not Available [facility] [address] [place], [address], 09/26/2024 10:43:58 09/26/19 25 09/26/2024 COMP. METAB OLIC PANEL (14) carbon dioxide, total 22 mmol/ L 20-29 normal Not Available [facility] [address] [place], [address], 09/26/2024 10:43:58 09/26/19 25 09/26/2024 COMP. METAB OLIC PANEL (14) calcium 9.7 mg/dL 8.7-10 .3 normal Not Available [facility] [address] [place], [address], 09/26/2024 10:43:58 09/26/19 25 09/26/2024 COMP. METAB OLIC PANEL (14) protein, total 7.0 g/dL 6.0-8. 5 normal Not Available [facility] [address] [place], [address], 09/26/2024 10:43:58 09/26/19 25 09/26/2024 COMP. METAB OLIC PANEL (14) albumin 4.1 g/dL 3.9-4. 9 normal Not Available [facility] [address] [place], [address], 09/26/2024 10:43:58 09/26/19 25 09/26/2024 COMP. METAB OLIC PANEL (14) globulin, total 2.9 g/dL 1.5-4. 5 Not Available [facility] [address] [place], [address], 09/26/2024 10:43:58 09/26/19 25 09/26/2024 COMP. METAB OLIC PANEL (14) bilirubin, total 0.6 mg/dL 0.0-1. 2 normal Not Available [facility] [address] [place], [address], 09/26/2024 10:43:58 09/26/19 25 09/26/2024 COMP. METAB OLIC PANEL (14) alkaline phosphatase 84 IU/L 44-121 normal Not Available [facility] [address] [place], [address], 09/26/2024 10:43:58 09/26/19 25 09/26/2024 COMP. METAB OLIC PANEL (14) AST (SGOT) 20 IU/L 0-40 normal Not Available [facility] [address] [place], [address], 09/26/2024 10:43:58 09/26/19 25 09/26/2024 COMP. METAB OLIC PANEL (14) ALT (SGPT) 9 IU/L 0-32 normal Not Available [facility] [address] [place], [address], 09/26/2024 10:43:58 09/26/19 25 09/26/2024 LIPID PANEL cholesterol, total 141 mg/dL 100-19 9 normal Not Available [facility] [address] [place], [address], 09/26/2024 10:43:59 09/26/19 25 09/26/2024 LIPID PANEL triglyceride s 113 mg/dL 0-149 normal Not Available [facility] [address] [place], [address], 09/26/2024 10:43:59 09/26/19 25 09/26/2024 LIPID PANEL HDL cholesterol 54 mg/dL >39 normal Not Available [facility] [address] [facility], [place], [address], 09/26/2024 10:43:59 09/26/19 25 09/26/2024 LIPID PANEL VLDL cholesterol lucas 20 mg/dL 5-40 Not Available [facility] [address] [place], [address], 09/26/2024 10:43:59 09/26/19 25 09/26/2024 LIPID PANEL LDL chol calc ([facility]) 67 mg/dL 0-99 Not Available [facility] [address] [place], [address], 09/26/2024 10:43:59 09/26/19 25 09/26/2024 LIPID PANEL LDL calc comment: EMERGENCY ROOM NURSE Not Available [facility] [address] [place], [address], 09/26/2024 10:43:59 09/26/19 25 09/26/2024 HEMOG LOBIN A1C hemoglobin A1C 6.1 % 4.8-5. 6 above high normal Predi abete s: 5.7 - 6.4 Diabe harvey: >6.4 Glyce magaly contr ol for adult s with diabe harvey: <7.0 Not Available [facility] [address] [facility], [place], [address], 09/26/2024 10:44:00 09/26/19 25 09/26/2024 TSH TSH 4.010 uIU/m L 0.450- 4.500 normal Not Available [facility] [address] [place], [address], 09/26/2024 10:44:01 09/26/19 25 09/26/2024 T4, FREE T4,free(dire ct) 1.26 NG/dL 0.82-1 .77 normal Not Available [facility]) [address], [place], [address], 09/26/2024 10:44:03 09/15/19 24 XR, knee No observ ation record ed. [email or web address] [facility] [place] [address], [place], [address], 09/15/2023 13:58:43 08/18/19 25 08/16/2024 PET, myoca rdial perfu go No observ ation record ed. [email or web address] [facility] [address], [place], [address], 08/17/2024 10:45:27 Result Notes None recorded. Problems Name Problem SNOMED Code Status Onset Date Resolution Date Notes Provider Name and Address Organization Details Recorded Time Neuralgia 55150727 Active Not Available [facility] 3 14:47:43 Anxiety disorder 266234040 Active Not Available [facility] 3 14:47:43 Synovitis and tenosynovi tis 142428286 Active Not Available [facility] 3 14:47:43 Lumbar sprain 398796801 Active Not Available [facility] 3 14:47:43 Pain 07959414 Active Not Available [facility] 3 14:47:43 Gastroesop hageal reflux disease 851481396 Active Not Available [facility] 3 14:47:43 Osteoarthr itis of knee 162848497 Active Not Available [facility] 3 14:47:43 Carcinoma of breast 453240553 Active Not Available [facility] 3 14:47:44 Pure hyperchole sterolemia 204818591 Active Not Available [facility] 3 14:47:44 Current tear of medial cartilage AND/OR meniscus of knee Active Not Available [facility] 3 14:47:44 Osteopenia 084950244 Active Not Available [facility] 3 14:47:44 Migraine 46588042 Active Not Available [facility] 3 14:47:44 Vertigo 657900704 Active Not Available [facility] 3 14:47:44 Ventral incisional hernia 707206176 Active Not Available [facility] 3 14:47:44 Coronary arterioscl erosis 94580039 Active Not Available [facility] 3 14:47:45 Derangemen t of knee 75519427 Active Not Available [facility] 3 14:47:45 Pain in limb 39414156 Active Not Available [facility] 3 14:47:45 Type 2 diabetes mellitus 60568039 Active 2017 Not Available [facility] 3 14:47:44 Essential hypertensi on 03187835 Active 2019 Not Available [facility] 3 14:47:45 History of polyp of colon 540478461 Active 2019 Not Available [facility] 3 14:47:44 COVID-19 810400355 Active 2021 Not Available [facility] 3 14:47:45 Neck pain 14553845 Active 2021 Not Available [facility] 3 14:47:45 Vitamin D deficiency 13633754 Active 2022 Carlos Pollack MD [address], [address], [place], [address] , [facility] 5 11:30:04 Senile osteoporos is 15545311 Active 2022 Lizzy Leigh null, [place] [facility] 5 11:38:50 Obese class III 859278841 Active 2022 Carlos Pollack MD [address], [address], [place], [address] , [facility] 3 11:29:40 Flank pain 052709754 Active 2023 Carolin Ochoa CMA null, [place] [facility] 4 11:19:24 Pain of right knee joint 4498723130242 00 Active 2023 Fabiola Mon CNA null, [facility] 4 13:11:56 Osteoarthr itis of right knee joint 3945941048572 00 Active 2023 DENI Dean [address] [facility], [address], [place], [address] , [facility] 4 13:59:00 Type 2 diabetes mellitus without complicati on 443260319 Active 2023 Lizzy Reese null, [facility] 4 11:02:48 Abdominal pain 69424398 Active 2023 Lizzy Liegh null, [facility] 4 11:02:59 Obese class II [id number] 05 Active 2023 Carlos Pollack MD [address], [facility] [address], [place], [address] , [facility] 4 17:23:24 Acute bronchitis 18570617 Active 2023 Carlos Pollack MD [address] [facility], [address], [place], [address] , [facility] 4 10:24:37 Mass of skin of right lower limb 4127636702060 9106 Active 2024 Carolin Ochoa CMA null, [facility] 5 14:02:54 Diabetes mellitus 72721389 Active 2024 Shaista Mitchell null, [facility] 5 18:07:20 Internal hemorrhoid s 88117003 Active 2024 Lizzy Leigh null, [facility] 5 16:12:44 Problem Notes None recorded. Procedures Surgical History Date Name Laterality Status Provider Name and Address Organization Details Recorded Time 02/28/20 Medicare Wellness CPT Code, subsequent completed Cayla Marin RN [facility] 02/28/2024 10:46:42 08/25/19 23 Medicare Wellness CPT Code, subsequent completed Cayla Marin RN [place] [employer] [facility] 08/24/2022 11:09:28 08/08/19 21 Most Recent Bone Density completed Not Available [facility] 07/28/2022 14:44:44 03/04/20 20 Date of Last Colonoscopy completed Not Available [facility] 07/28/2022 14:44:43 Imaging Results None recorded. Procedure Notes None recorded. Medical Equipment None Reported. Allergies Allergen ID Allergen Name Allergen Category Reaction Reaction Severity Criticality Documentation Date Start Date Code Code System Note Provider Name and Address Organization Details Recorded Time 46639 Product containin g penicilli n (product) medicatio n rash Not available Not available 07/28/2022 69925 8001 SNOMED Not Available [facility] 14:51:25 99992 Aldactone medicatio n other Not available Not available 07/28/2022 32769 7 RxNorm hyper kalem ia Not Available [facility] 14:51:25 96059 Ozempic medicatio n nausea Not available [facility] 09/25/2024 07 RxNorm Carlos Pollack MD [address] [facility] [address], [place], [address] [place] [address] [facility] 5 11:49:57 Medications Name Sig Start Date Stop Date Status Note LastModified by Organization Details LastModified Time celecoxib 200 mg capsule TAKE 1 CAPSULE BY MOUTH EVERY DAY 09/25 completed Not Available Not Available Not Available Zocor 20 mg tablet Take 1 tablet every day by oral route. 2013 active Not Available Not Available Not Avai lable atorvastati n 40 mg tablet Take 1 tablet every day by oral route. active Not Available Not Available No t Available metformin 500 mg tablet TAKE 1 TABLET BY MOUTH TWICE DAILY 2024 active Not Available Not Available Not Avai lable Tylenol-Cod eine #4 300 mg-60 mg tablet Take 1 tablet every 6 hours by oral route. 08/18 completed Not Available Not Available Not Available azithromyci n 250 mg tablet Take 2 TABLET EVERY DAY by oral route for 1 day then one daily 09/25 completed Not Available Not Available Not Available benzonatate 200 mg capsule Take 1 capsule 3 times a day by oral route. 09/25 completed Not Available Not Available Not Available ondansetron HCl 4 mg tablet Take 1 tablet every 6-8 hours by oral route as needed. 01/24 completed Not Available Not Available Not Available bupivacaine HCl 0.5 % (5 mg/mL) injection solution Take 20 mg by injection route. 09/25 completed Not Available Not Available Not Available simvastatin 10 mg tablet active Not Available Not Available Not Available diphenoxyla te-atropine 2.5 mg-0.025 mg tablet Take by oral route one tablet q 4 hours prn for diarrhea active Not Available Not Available No t Available sulfamethox azole 800 mg-trimetho prim 160 mg tablet TAKE 1 TABLET BY MOUTH EVERY 12 HOURS active Not Available Not Available No t Available aspirin 81 mg tablet,aden yed release Take 1 tablet every day by oral route. 02/27 completed Not Available Not Available Not Available tramadol 50 mg tablet active Not Available Not Available No t Available lorazepam 0.5 mg tablet TAKE 1 TABLET BY MOUTH THREE TIMES DAILY NEEDED active Not Available Not Available No t Available Kenalog 10 mg/mL suspension for injection Take 20 mg by injection route. 09/25 completed [facility]: [phone] Not Available Not Available Not Available meclizine 25 mg tablet TAKE 1 TABLET BY MOUTH THREE TIMES DAILY 09/14 completed Not Available Not Available Not Available biotin 10,000 mcg capsule Take 1 capsule every day by oral route. 2014 active Not Available Not Available Not Avai lable cyanocobala min (vit B-12) 1,000 mcg/mL injection solution Inject 1 mL by subcutane ous route. 01/29 completed Not Available Not Available Not Available Cipro 500 mg tablet Take 1 tablet twice a day by oral route for 10 days. 07/06 completed Not Available Not Available Not Available lisinopril 10 mg tablet TAKE 1 TABLET BY MOUTH DAILY active Not Available Not Available No t Available losartan 25 mg tablet TAKE 1 TABLET BY MOUTH DAILY 2024 active Not Available Not Available Not Avai lable omeprazole 20 mg capsule,del ayed release TAKE 1 CAPSULE BY MOUTH DAILY 09/25 completed Not Available Not Available Not Available diclofenac sodium 75 mg tablet,aden yed release active Not Available Not Available Not Available levofloxaci n 500 mg tablet TK 1 T PO QD active Not Available Not Available No t Available Vitamin D2 1,250 mcg (50,000 unit) capsule Take 1 capsule every week by oral route. 07/27 completed Not Available Not Available Not Available ondansetron 4 mg disintegrat ing tablet Place 2 tablets twice a day by transling ual route as needed. active Not Available Not Available No t Available Vitamin D3 25 mcg (1,000 unit) capsule Take 1 capsule every day by oral route. 2014 active Not Available Not Available Not Avai lable Ciprodex 0.3 %-0.1 % ear drops,suspe nsion INT 1 GTT INTO AFFECTED EAR UTD active Not Available Not Available No t Available Crestor 20 mg tablet 07/30 completed Not Available Not Available Not Available Multivitami n 50 Plus tablet Take 1 tablet every day by oral route. active Not Available Not Available No t Available Vitamin D3 daily 2013 active Not Available Not Available Not Avai lable multivitami n daily 2013 active Not Available Not Available Not Avai lable Zostavax (PF) 19,400 unit/0.65 mL subcutaneou s suspension INJECT 0.65 ML SUBCUTANE OUSLY DIRECTED. active Not Available Not Available No t Available [place] 3-6-9 once daily 2014 active Not Available Not Available Not Avai lable omeprazole 20 mg tablet,aden yed release Take by oral route. 01/25 completed Not Available Not Available Not Available biotin 2,500 mcg capsule Take 2 capsules every day by oral route. active Not Available Not Available No t Available cyanocobala min (vit B-12) 5,[address] 1 tablet every day by sublingua l route. active Not Available Not Available No t Available Caltrate 600 plus D once daily 2014 active Not Available Not Available Not Avai lable OneTouch Verio test strips DIRECTED DAILY active Not Available Not Available No t Available lancets 30 gauge one touch verio lancets use to test blood sugars daily active Not Available Not Available No t Available Fluvirin 2568-1999 45 mcg (15 mcg x 3)/0.5 mL intramuscul ar suspension INJECT 0.5 ML INTRAMUSC ULARLY DIRECTED. active Not Available Not Available No t Available OneTouch Verio Flex Meter DIRECTED DAILY active Not Available Not Available No t Available Clenpiq 10 mg-3.5 gram-12 gram/160 mL oral solution USE DIRECTED 07/30 completed Not Available Not Available Not Available OneTouch Delica Plus Lancet 33 gauge DIRECTED DAILY active Not Available Not Available No t Available Paxlovid 300 mg (150 mg x 2)-100 mg tablets in a dose pack FOLLOW PACKAGE DIRECTION S 02/23 completed Not Available Not Available Not Available Paxlovid 150 mg-100 mg tablets in a dose pack (Moderate Renal Dose) Take by oral route. Take two 150 mg and one 100 mg tablet twice daily for five days 02/23 completed Not Available Not Available Not Available Mounjaro 2.5 mg/0.5 mL subcutaneou s pen injector INJECT 2.5 MG BY SUBCUTANE OUS ROUTE ONCE WEEKLY FOR 4 WEEKS 03/26 completed Not Available Not Available Not Available Ozempic 0.25 mg or 0.5 mg (2 mg/3 mL) subcutaneou s pen injector INJECT 0.25 MG UNDER SKIN EVERY WEEK 02/22 completed Not Available Not Available Not Available Vitals Date Recorded Body height Body mass index (BMI) Body weight Provider Name and Address Organization Details Last Updated DateTime 09/15/2023 163.83 cm 39.7 kg/m2 555488.21 g Fabiola Mon CNA [employer] [facility] 09/15/2023 13:17:45 Date Recorded Body height Body mass index (BMI) Body weight Heart rate Body temperature Oxygen saturation Oxygen saturation in Arterial blood by Pulse oximetry Systolic And Diastolic Provider Name and Address Organization Details Last Updated DateTime 165.1 cm 39.9 kg/m2 419916. 17 g 88 /min 97 [degF] 98 % 98 % 162/80 mm[Hg] Shaista Mitchell [employer] [facility] 11:35:41 Date Recorded Body height Body mass index (BMI) Body weight Heart rate Body temperature Oxygen saturation Oxygen saturation in Arterial blood by Pulse oximetry Systolic And Diastolic Provider Name and Address Organization Details Last Updated DateTime 5 165.1 cm 39.9 kg/m2 718613. 17 g 109 /min 97 [degF] 95 % 95 % 122/78 mm[Hg] [facility] 5 15:40:05 Date Recorded Pain severity - 0-10 verbal numeric rating [Score] - Reported Provider Name and Address Organization Details Last Updated DateTime 02/28/2024 0 Cayla Marin RN [facility] 02/28/2024 10:47:00 Date Recorded Body height Body weight Heart rate Body temperature Oxygen saturation Oxygen saturation in Arterial blood by Pulse oximetry Systolic And Diastolic Provider Name and Address Organization Details Last Updated DateTime 4 163.83 cm 006192. 98 g 87 /min 97 [degF] 97 % 97 % 132/70 mm[Hg] LESLIE Sanchez [facility] 4 10:42:35 Date Recorded Body height Body mass index (BMI) Body weight Heart rate Body temperature Oxygen saturation Oxygen saturation in Arterial blood by Pulse oximetry Systolic And Diastolic Provider Name and Address Organization Details Last Updated DateTime 5 165.1 cm 40.3 kg/m2 822610. 35 g 90 /min 97.2 [degF] 95 % 95 % 120/74 mm[Hg] [facility] 5 11:01:01 Social History Question Answer Notes LastModified by Organization Details LastModified Time Tobacco Smoking Status Former Smoker Patient stated she tried it for 2-3 years in her 20s Not Available [facility] 07/28/2022 14:44:22 Do You Have An Advance Directive? Yes [id number] Information not available 07/28/2022 Are You Blind Or Do You Have Difficulty Seeing? No MIGRATION.[id number] Information not available 07/28/2022 What Is Your Level Of Caffeine Consumption? Moderate MIGRATION.[id number] Information not available 07/28/2022 In The 14 Days Before Symptom Onset, Have You Had Close Contact With A Laboratory-confi rmed COVID-19 While That Case Was Ill? No MIGRATION.0301 [id number] Information not available 07/28/2022 In The 14 Days Before Symptom Onset, Have You Had Close Contact With A Person Who Is Under Investigation For COVID-19 While That Person Was Ill? No MIGRATION.0301 [id number] Information not available 07/28/2022 Are You Deaf Or Do You Have Serious Difficulty Hearing? No MIGRATION.0301 [id number] Information not available 07/28/2022 What Type Of Diet Are You Following? REGULAR MIGRATION.0301 [id number] Information not available 07/28/2022 Have There Been Any Changes To Your Family Or Social Situation? No MIGRATION.0301 799934 Information not available 07/28/2022 What Is The Fluoride Status Of Your Home? Unknown MIGRATION.0301 [id number] Information not available 07/28/2022 Are There Any Guns Present In Your Home? Yes MIGRATION.0301 [id number] Information not available 07/28/2022 Do You Use Insect Repellent Routinely? Yes MIGRATION.0301 [id number] Information not available 07/28/2022 [facility] [id number] Information not available 07/28/2022 Guns Present In The Home? Yes [email or web address] Information not available 08/24/2022 Are You Able To Care For Yourself? Yes [email or web address] Information not available 08/24/2022 Are You Blind Or Do Yo Have Difficulty Seeing? No [email or web address] Information not available 08/24/2022 Are You Deaf Or Do You Have Serious Difficulty Hearing? No Information not available 08/24/2022 Live Alone Of With Others? With Others [email or web address] Information not available 08/24/2022 Do You Have A Medical Power Of Senior Graduate Advisor? Yes [email or web address] Information not available 08/24/2022 What Was The Date Of Your Most Recent Tobacco Screening? 02/28/2024 [email or web address] Information not available 02/28/2024 Do You Have Any Pets? No Information not available 08/24/2022 What Is Your Relationship Status? MIGRATION.0301 [id number] Information not available 07/28/2022 Do You Use Your Seat Belt Or Car Seat Routinely? Yes MIGRATION.0301 [id number] Information not available 07/28/2022 Do You Have Smoke And Carbon Monoxide Detectors In Your Home? Yes MIGRATION.0301 [id number] Information not available 07/28/2022 Are You Passively Exposed To Smoke? No MIGRATION.0301 273461 Information not available 07/28/2022 Are There Any Smokers In Your House? No MIGRATION.0301 525253 Information not available 07/28/2022 Do You Use Sunscreen Routinely? No MIGRATION.0301 237344 Information not available 07/28/2022 Has Tobacco Cessation Counseling Been Provided? No MIGRATION.0301 813842 Information not available 07/28/2022 Have You Recently Traveled Abroad? No MIGRATION.0301 713200 Information not available 07/28/2022 Do You Have Difficulty Walking Or Climbing Stairs? No MIGRATION.0301 672486 Information not available 07/28/2022 Do You Have Any Dietary Restrictions? No MIGRATION.0301 831140 Information not available 07/28/2022 Sex: Unknown Functional Status Question Answer Note LastModified by [employer] ion Details LastModified Time Do you use any illicit or recreational drugs? No MIGRATION.321732 0755 Information not available 07/28/2022 Do you or have you ever used any other forms of tobacco or nicotine? No MIGRATION.321784 1137 Information not available 07/28/2022 What is your level of alcohol consumption? Occasional MIGRATION.331343 2897 Information not available 07/28/2022 Do you have transportation difficulties? No MIGRATION.738102 0087 Information not available 07/28/2022 Are you able to walk independently without assistance or assistive devices? YESWOREST MIGRATION.359763 2098 Information not available 07/28/2022 Do you have difficulty doing errands alone? No MIGRATION.036764 6232 Information not available 07/28/2022 Are you able to care for yourself independently? Yes MIGRATION.846465 1365 Information not available 07/28/2022 Do you have difficulty dressing, bathing, grooming, or toileting? No MIGRATION.906409 4194 Information not available 07/28/2022 Do you or have you ever used e-cigarettes or vape? Never used electronic cigarettes MIGRATION.125289 8308 Information not available 07/28/2022 What is your exercise level? Occasional MIGRATION.880456 4085 Information not available 07/28/2022 Mental Status Question Answer Note LastModified by Organizat ion Details LastModified Time Do you have difficulty concentrating, remembering or making decisions? No MIGRATION.[id number] 6 Information not available 07/28/2022 Family History Relationship Description Onset Age of this Age Resolved Age Notes LastModified by Organization Details LastModified Time Father Heart disease [email or web address] Not available 2023 13:20:07 Sister Heart disease [email or web address] Not available 2023 13:20:07 Sister Family history of stroke [email or web address] Not available 2023 13:20:19 Sister Diabetes mellitus [email or web address] Not available 2023 13:21:26 Mother Family history of malignant neoplasm [email or web address] Not available 2023 13:21:15 Notes:Mother at 48 [place] Father at 62 from [facility] Four sisters one (murdered) and another from a stroked. The rest in good health. One brother from [facility] Medical History Condition Response NERVE DISEASE N BLINDNESS N RHEUMATIC FEVER N KIDNEY STONES N BLADDER PROBLEMS N MRSA N OTHER # 1 N POLIO N LUNG DISEASE/DISORDER N HISTORY OF DRUG ABUSE N RADIATION / CHEMOTHERAPY N COPD N Other # 2 N BLOOD DISEASES N EAR OR HEARING PROBLEMS N MUMPS N SHINGLES N BOWEL PROBLEMS N DEPRESSION (INCLUDING POST ) N STROKE/TIA N ULCERS N BENIGN PROSTATIC HYPERPLASIA N MEASLES N HYPOTENSION N MYOCARDIAL INFARCTION N OBESITY N GERD/NAUSEA N ANEURYSM N URINARY/BLADDER/KIDNEY PROBLEMS N CORONARY ARTERY DISEASE (CAD) Y ADDICTION CONCERNS N Impotence N ENDOMETRIOSIS N USE OF BLOOD THINNERS N SKIN PROBLEMS N GASTROINTESTINAL DISORDER N PERIPHERAL VASCULAR DISEASE N MUSCLE,JOINT OR BONE PROBLEMS N GASTROINTESTINAL BLEEDING N BLOOD CLOTS N ASTHMA N CATARACTS N ERECTILE DYSFUNCTION N VARICOSITIES N GI PROBLEMS N Low Testosterone N INFERTILITY N AIDS/HIV N CHEMOTHERAPY / RADIATION N LIVER DISEASE N MALE HYPOGONADISM N HYPERTENSION N Deficiency N TOURETTE'S N ANXIETY DISORDER Y BLOOD TRANSFUSION N ANEMIA/BLOOD DISORDER N CHRONIC EAR INFECTIONS N BRONCHITIS N TUBERCULOSIS N GLAUCOMA N FOOT PROBLEM N DIVERTICULITIS N SLEEP APNEA N CHICKENPOX N INFECTIOUS DISEASE N PROSTATE N HEART ARRHYTHMIA N INSOMNIA N HIGH CHOLESTEROL / HYPERLIPIDEMIA Y EYE PROBLEMS N HYPERTHYROIDISM N EDEMA N CHRONIC PAIN SYNDROME N HYPOTHYROIDISM N CONSTIPATION N CAROTID BLOCKAGE N BACK / NECK PROBLEMS N HAVE YOU BEEN HOSPITALIZED OR SEEN IN [facility] IN THE PAST YEAR ? N ATHEROSCLEROSIS N BREAST PROBLEMS Y DIALYSIS N ECZEMA N OSTEOPOROSIS N ARTHRITIS N NO SIGNIFICANT PAST MEDICAL HISTORY N APPENDICITIS N DIABETES, TYPE Y BAD TEETH N ENT N HEARTBURN / REFLUX Y AUTISM SPECTRUM DISORDER (ASD) N HEPATITIS / LIVER DISEASE N GOUT N SLEEP DISORDER N ALZHEIMER'S DISEASE N Brain Problems N DEMENTIA N HERPES N SEIZURES/EPILEPSY N HEADACHES/MIGRAINES Y VASCULAR DISEASE N PACEMAKER N Blood Disorder N DIZZINESS N HEART DISEASE/HEART PROBLEMS Y KIDNEY DISEASE N MULTIPLE SCLEROSIS N CANCER: SPECIFY Y CARDIAC ARRHYTHMIA N ATRIAL FIBRILLATION N Gall Stones N PULMONARY EMBOLISM N AUTOIMMUNE DISEASE N Gynecological History Statement/Question Response Date of Last Pap Date of Last Mammogram Date of Last Colonoscopy 03/04/2020 Most Recent Bone Density 08/07/2020 Obstetrics History GPAL:G 0 P 0 0 0 0 Immunizations Vaccine Type Date Status Note Provider Nam e and Address Organization Details Recorded Time Influenza, split virus, trivalent, preservative 5 completed Not Available [facility] 03/26/2025 10:54:34 Influenza, split virus, trivalent, PF 6 completed Not Available [facility] 03/26/2025 10:54:34 Influenza, split virus, trivalent, preservative 7 completed Not Available [facility] 03/26/2025 10:54:34 Influenza, split virus, quadrivalent, PF 8 completed Not Available [facility] 03/26/2025 10:54:34 zoster recombinant 9 completed Not Available [facility] 03/26/2025 10:54:34 Influenza, high-dose, trivalent, PF 9 completed Not Available [facility] 03/26/2025 10:54:34 Influenza, high-dose, quadrivalent, PF 0 completed Not Available [facility] 03/26/2025 10:54:34 COVID-19, mRNA, LNP-S, PF, 100 mcg/0.5mL dose or 50 mcg/0.25mL dose 1 completed Not Available [facility] 03/26/2025 10:54:34 Influenza, high-dose, quadrivalent, PF 1 completed Not Available [facility] 03/26/2025 10:54:34 COVID-19, mRNA, LNP-S, PF, 100 mcg/0.5mL dose or 50 mcg/0.25mL dose 2 completed Not Available [facility] 03/26/2025 10:54:34 Influenza, high-dose, quadrivalent, PF 2 completed Not Available [facility] 03/26/2025 10:54:34 COVID-19, mRNA, LNP-S, bivalent, PF, 50 mcg/0.5 mL or 25mcg/0.25 mL dose 2 completed Not Available [facility] 03/26/2025 10:54:34 COVID-19, mRNA, LNP-S, PF, tabatha-sucrose, 30 mcg/0.3 mL 3 completed Not Available [facility] 03/26/2025 10:54:34 COVID-19, mRNA, LNP-S, PF, 50 mcg/0.5 mL 4 completed Not Available [facility] 03/26/2025 10:54:34 Influenza, high-dose, trivalent, PF 4 completed Not Available [facility] 03/26/2025 10:54:34 COVID-19, mRNA, LNP-S, PF, 10 mcg/0.2 mL 5 completed Not Available [facility] 03/26/2025 10:54:34 Influenza, high-dose, trivalent, PF 5 completed Not Available [facility] 03/26/2025 10:54:34 Influenza, high-dose, quadrivalent, PF 3 completed [facility] 02/22/2023 16:00:20 SARS-COV-2 (COVID-19) vaccine, UNSPECIFIED 1 completed Not Available [facility] 07/28/2022 14:51:14 Influenza, split virus, trivalent, preservative 1 completed Not Available [facility] 07/28/2022 14:51:14 SARS-COV-2 (COVID-19) vaccine, UNSPECIFIED 1 completed Not Available [facility] 07/28/2022 14:51:14 SARS-COV-2 (COVID-19) vaccine, UNSPECIFIED 1 completed Not Available [facility] 07/28/2022 14:51:14 pneumococcal polysaccharide PPV23 0 completed Not Available [facility] 07/28/2022 14:51:14 Pneumococcal conjugate PCV 13 9 completed Not Available [facility] 07/28/2022 14:51:14 zoster live 4 completed Not Available [facility] 07/28/2022 14:51:15 Past Encounters Encounter ID Performer Location Encounter Start Date Encounter Closed Date Diagnosis/Indication Diagnosis SNOMED-CT Code Diagnosis ICD10 Code Diagnosis IMO Codes Diagnosis Note [id number] Carlos Pollack MD [facility] Internal Med [facility] [address] [facility] [address] [place] [address] 07/30/2020 00:00:00 07/30/2020 11:29:25 [id number] Carlos Pollack MD [facility] Internal Med [place] [address] [place] [address] y , [place] [address] 01/30/2021 00:00:00 01/30/2021 12:54:16 [id number] Carlos Pollack MD [facility] Internal Med [place] [address] [place] [address] [place] [address] 03/17/2021 00:00:00 03/17/2021 11:41:57 [id number] Carlos Pollack MD [facility] Internal Med [place] [address] [place] [address] [place] [address] 08/18/2021 00:00:00 08/18/2021 15:09:15 [id number] Carlos Pollack MD [facility] Internal Med [place] [address] [place] [address] [place] [address] 02/23/2022 00:00:00 02/23/2022 11:21:49 [id number] Carlos Pollack MD [facility] Internal Med [place] [address] [place] [address] [place] [address] 05/04/2022 00:00:00 05/04/2022 15:34:32 [id number] Carlos Pollack MD [facility] Internal Med [address] , [place] [address] 08/24/2022 10:47:13 08/24/2022 11:40:13 Adult health examination 791157357 Z00.00 Screening for disorder 643835854 Z13.9 Coronary arteriosclerosis 71296045 I25.10 Essential hypertension 90457308 I10 Pure hypercholesterolemia 725272747 E78.00 Type 2 tammie betes mellitus 72777275 E11.9 Obesity 236302352 E66.9 Vitamin D deficiency 347 74703 E55.9 [id number] Carlos Pollack MD [facility] Internal [facility] [address] [place] [address] y , [place] [address] 02/22/2023 10:51:45 02/22/2023 11:38:15 Coronary arteriosclerosis 83903082 I25.10 Essential hypertension 91404809 I10 Pure hypercholesterolemia 276722045 E78.00 Type 2 tammie betes mellitus 01571601 E11.9 Obese class III 10206926 5 E66.01 Administra tion of influenza vaccine 43159010 Z23 Active or passive immunization 466743673 Z23 [id number] Carlos Pollack MD [facility] Internal [facility] [address] [place] [address] 08/23/2023 10:24:31 08/23/2023 10:59:44 Coronary arteriosclerosis 08630267 I25.10 Essential hypertension 31126418 I10 Pure hypercholesterolemia 192315914 E78.00 Type 2 tammie betes mellitus 98900550 E11.9 Gastroesop hageal reflux disease 979591982 K21.9 [id number] Barry Craig MD [facility] [address] [place] [address] 09/15/2023 12:58:13 09/15/2023 14:06:46 Pain of right knee joint [id number] 82215 M25.561 Osteoarthr itis of right knee joint [id number] 88315 M17.11 [id number] Carlos Pollack MD [facility] Internal Med [facility] [address] [facility] [address] , [place] [address] 02/28/2024 10:35:19 03/01/2024 13:20:06 Adult health examination 048411365 Z00.00 Screening for disorder 266731440 Z13.9 Coronary arteriosclerosis 61592716 I25.10 Essential hypertension 22973351 I10 Gastroesop hageal reflux disease 080531452 K21.9 Type 2 tammie betes mellitus without complication 689191228 E11.9 [id number] Carlos Pollack MD [facility] Primary Care [facility] [address] [facility] [address] [place] [address] 09/25/2024 11:21:12 09/25/2024 12:18:12 Coronary arteriosclerosis 15639815 I25.10 Essential hypertension 06873001 I10 Pure hypercholesterolemia 759528456 E78.00 Type 2 atmmie betes mellitus 61435791 E11.9 [id number] Carlos Pollack MD [facility] Internal Med [facility] [address] [address] 12/03/2024 15:11:07 12/03/2024 15:59:01 Mass of skin of right lower limb [id number] 1775841 L98.9 835974 [id number] Carlos Pollack MD [facility] Internal Med [facility] [address] [address] 03/26/2025 10:52:42 03/26/2025 11:35:30 General examination of patient 462016799 Z00.00 [id number] Coronary arteriosclerosis 15013480 I25.10 Essential hypertension 94461254 I10 Pure hypercholesterolemia 240410438 E78.00 Obese class III 72077229 5 E66.01 Type 2 tammie betes mellitus 73957802 E11.9 Vitamin D deficiency 347 56309 E55.9 71405 Health Concerns Section Related Observation LastModified by Organization Detai ls LastModified Time None Recorded Concern Status LastModified by Organization Details LastModified Time None Recorded Advance Directives Directive Y: Payers Insurance Date Sequence Insurance Name Policy Number Policy Olivo Covered Member ID Olivo Member ID Guarantor Name 03/27/2025 1 [facility] (MEDICARE REPLACEMENT/A DVANTAGE - HMO) [id number] Jaimee Grimm [id number] Jaimee Grimm Notes Date Note Type Note Provider Name and Address Organization Details Recorded Time 4 text/htm l The patient is a 68-year-old female who presents with right knee pain. Her pain is localized mostly medially this has been on going for about 5 days now. She states she was walking when she started feeling some aching pain in the medial side of the knee which became a little worse with time now it has about an 8 on a scale of 1-10. Denies any specific trauma or injury did not slip or twist on the knee. She states many years ago she had similar knee pain and she had a round of gel shots which gave her good relief and she has not been seen for several years. She denies any locking or catching no mechanical symptoms no swelling or effusion no erythema heat or other signs of infection. She is walking with a limp states she has good range of motion strength and stability, she is tried some Tylenol which did not help also Advil capsules wsun-fin-xvyiail did not help. She thinks she has some osteoarthritis in the knee in the past she has had issues with both knees but not for several years. She comes in today for initial evaluation treatment of right knee pain as described. Past medical history sheet was reviewed and signed on intake sheet of today's date drug allergies current medications family social history previous surgical history 10 point review of systems was reviewed and discussed in detail today with the patient. DENI Dean [address] [facility], [facility] [address], [place], [address], [place] [facility] [employer] 09/15/2023 13:59:36 4 text/htm l Patient Name: Jaimee GrimmDate Of Service: Tuesday ( 02.28.2024 ): 1955 Age: 69 There has been approximately a 2 lb weight gain since 08/23/2023. This represents approximately a .8% change in weight. Weight change attributable to lifestyle changes. Vital Signs:Blood Pressure: Sitting Rt. Arm 132/70Pulse: Sitting 87 /min and RegularRespiratory Rate: 16Height 65 in or 1.7 mWeight 238 lb or 108.0 kgBMI 39.6Temperature: 97 F or 36.1 CPulse Oximetry: 97 % at rest on no oxygen Chief Complaint: Addressed in HPI Problems or conditions discussed in the HPI were the only ones reviewed during the encounter.Only social and family history addressed in the HPI were reviewed during this encounter. Attendant(s): NoneConstitutional and Systemic Symptoms:none Medication Reconciliation: from medication list. AnnotationsBone density scan from 09/08/2022 shows normal bone density. Continue on any vitamin-D and calcium D supplements. Repeat in two years History of Present Illness Reviewed the findings of the preventative health visit. Addressed all areas with the patient, patient's family or caregivers. Preventative examinations and testing immunizations - vaccinations all reviewed and ordered where patient was amenable to the recommendations. Cognitive function was normal. Depression addressed and where necessary medications were adjusted or instituted. End of life and living will briefly discussed with patient and where these can be filled out and legally executed. Other blood and imaging studies were ordered if considered necessary. Other recommendations may be found in the encounter note. #1. Coronary Artery Disease: There has been no change in frequency - duration - intensity in frequency, duration or intensity of chest pain. Other Complaints: none The frequency of anginal attacks is none at all. Additional Symptoms: none Therapy reviewed regarding cardiovascular management includes Aspirin, Atorvastatin Calcium and Lisinopril #2. Essential Hypertension: Stage: Stage I Interval Neurological Complaints no headaches. No shortness of breath, orthopnea or cardiovascular symptoms. No other symptoms related to end organ damage. Pressure has been under fair control. Currently normal. No other end organ symptoms or findings. Therapy reviewed regarding management of hypertension and includes salt restriction and Lisinopril. #3. Type II Hypercholesterolaemia: Currently taking medication and tolerating well. No interval complaints of any muscle pain or arthralgia. No significant liver changes with medications. Last lipid panel: fair control. Therapy reviewed regarding treatment of cholesterol management and include Atorvastatin Calcium and Medication. #4. Hx of esophageal reflux currently stable. Hx of Complications: none The severity, duration and intensity of symptoms have improved. Frequency: most meals Treatment consists medications taken on a regular basis. Current therapy includes no medication. There has been no nausea, eructation, vomiting, hematemesis, dysphagia, velopharyngeal insufficiency and odynophagia. No change in he frequency or intensity of symptoms. Has had no melena. Has had no . Discussed use of H2 antagonists NA.#5. Type 2 diabetes clinically stable. Last hemoglobin A1c was 5.9. Clinically doing well. Is tolerating the metformin and doing well. #6. Hx of obesity. Currently Class 2 Obesity BMI 35-39.99. Has tried numerous dietary support and supplements with no benefit. Instructed on the health consequences of the obese status particularly cancer - diabetes and heart disease. Discussed other modalities of weight loss no . Potential candidate for bariatric surgery: No. Wishes to be evaluated by Dietary: No and was offered to be evaluated and instructed by carbon rod inserter on weight loss diet. Active Medication ListOmeprazole 20 MG CAPSULE, DELAYED RELEASE Once DailyVitamin B12 5000 MCG Once DailyMultivitamin Once DailyAtivan 0.5 MG (TABLET - ORAL) One Tid Prn For AnxietyAtorvastatin Calcium 40 MG (TABLET - ORAL) One Daily Hs For CholesterolLosartan Potassium 25 MG TABLET Once DailyAspirin 81 MG One Daily For HeartBiotin 5000 MCG Once DailyMetformin Hydrochloride 500 MG (TABLET - ORAL) One Bid Adverse Drug Reactions ReviewedPenicillin RashAldactone Hyperkalemia Vaccination and Immunization(X) 2022- INFLUENZA( ) 2008- H1N1( ) 2019-02 PREVNAR 13 GC( ) 2020-06 COVID MODERNA( ) 2020-02 PNEUMOVAX(X) 2021-03 COVID BOOSTER MODERNA Surgical Momxyuw4062-71 Coronary Arnasf6187-48 Bilateral Aiogwauoszem6652-94 Ventral Zuyzfi8455-49 Lap Gmrswqknkcshkui0724-59 Kojfmglgqge2952-53 Abdominal Hysterectomy Preventative Testing( ) 09/21/2023 Optometry( ) 08/23/2023 Albumin 4.1 G/DL( ) 08/23/2023 Micro Albumin 10.3 UG/ML( ) 08/23/2023 HAIC 5.9 % H( ) 09/08/2022 DEXA Scan 09/08/2024( ) 03/27/2021 Upper Endoscopy( ) 03/04/2020 Colonoscopy (5 Years) 03/04/2025( ) 12/22/2008 CT Thorax, Abdomen And Pelvis Social HistoryDoes not smoke but drinks socially. Family HistoryMother at 48 ovarian CAFather at 62 from ASHDFour sisters two (murdered) and another from a stroked. The rest in good health. One brother from CRF Carlos Pollack MD [address] [facility] [address] [facility], [facility] [address], [place], [address], [place] [facility] [employer] [facility] 02/29/2024 09:02:07 5 text/htm l Patient Name: Jaimee Ballard Of Service: Tuesday ( 09.25.2024 ): 1955 Age: 69 There has been approximately a 2 lb weight gain since 02/28/2024. This represents approximately a .8% change in weight. Weight change attributable to lifestyle changes. Vital Signs:Blood Pressure: Sitting Rt. Arm 162/80Pulse: Sitting 88 /min and RegularRespiratory Rate: 16Height 65 in or 1.7 mWeight 240 lb or 108.9 kgBMI 39.9Temperature: 97 F or 36.1 CDCCT HAIC: 6.1 Calculated MB mg%Pulse Oximetry: 98 % at rest on no oxygen Chief Complaint: Addressed in HPI Problems or conditions discussed in the HPI were the only ones reviewed during the encounter.Only social and family history addressed in the HPI were reviewed during this encounter. Attendant(s): NoneConstitutional and Systemic Symptoms:none Medication Reconciliation: from medication list. [id number]: CT PET scan of the cardiac showed nonspecific abnormality. Normal ECG with no ischemic ST or T-wave changes following vasodilator infusion. In the FR is considered slightly abnormal. Abnormal imaging of the apical inferior region with severe perfusion defect which is small in size and appears fixed. Also imaging defects are noted in the lateral region with moderate perfusion defect which again appears to be fixed. 09-06-2024: Cardiac catheterization showed a 40-50% stenosis of the left main. Not decide to be hemodynamically significant. There is also 65% stenosis of the right coronary artery. History of Present Illness #1. Coronary Artery Disease: There has been no change in frequency - duration - intensity in frequency, duration or intensity of chest pain. Other Complaints: none The frequency of anginal attacks is several times per week. Additional Symptoms: none Therapy reviewed regarding cardiovascular management includes Atorvastatin Calcium and Losartan Potassium #2. Essential Hypertension: Stage: Stage I Interval Neurological Complaints no headaches, dizziness, weakness, visual changes, ataxia, aphasia and apraxia. No shortness of breath, orthopnea or cardiovascular symptoms. No other symptoms related to end organ damage. Pressure has been under excellent control. Currently normal. No other end organ symptoms or findings. Therapy reviewed regarding management of hypertension and includes salt restriction and Losartan Potassium. #3. Type II Hypercholesterolaemia: Currently taking medication and tolerating well. No interval complaints of any muscle pain or arthralgia. No significant liver changes with medications. Last lipid panel: fair control. Therapy reviewed regarding treatment of cholesterol management and include diet and Atorvastatin Calcium. #4. Type II Diabetes: Has had no polyuria polyphagia or polydipsia. Has had no hypoglycemic like responses. No new history of any numbness, tingling, weakness or visual problems. No nausea, anorexia or other constitutional symptoms. There has been no foot problems or non healing lesions. The last HAIC was [facility] HAIC: 6.1 Calculated MB mg%. CGM: No. Average blood sugars 100-115 mg%. Checking sugars : several times a week. Medication Types Include: Metformin and GLP-1 Secondary complications include none. Macro-vascular complications include ASHD. Therapy reviewed regarding diabetic management and include Metformin Hydrochloride and Mounjaro Compliance: good Renal Protection: ARBs Lipid management: statins Urinary microalbumin: A1 . Ophthalmological: has seen eye doctor within the last year. Control: Below 6.2 Active Medication ListVitamin B12 5000 MCG Once DailyMultivitamin Once DailyAtivan 0.5 MG (TABLET - ORAL) One Tid Prn For AnxietyAtorvastatin Calcium 40 MG (TABLET - ORAL) One Daily Hs For CholesterolLosartan Potassium 25 MG TABLET Once DailyBiotin 5000 MCG Once DailyMounjaro 2.5 MG/.5ML INJECTION, SOLUTION Once WeeklyMetformin Hydrochloride 500 MG (TABLET - ORAL) One Bid Adverse Drug Reactions ReviewedPenicillin RashAldactone Hyperkalemia Vaccination and Immunization(X) 2022- INFLUENZA( ) 2008- H1N1( ) 2008- ZOSTAVAX (SHINGLES)( ) 2019-02 PREVNAR 13 GC( ) 2020- COVID MODERNA( ) 2019- PNEUMOVAX(X) 2020- COVID BOOSTER MODERNA Surgical Sryzdvf7820-89 Cardiac Ngii6054-56 Coronary Jsvkoo0297-84 Bilateral Rjqihufshbrh6788-78 Ventral Icqffl8837-56 Lap Nvaennkmydmlkkn8298-20 Ekctbsurown2427-34 Abdominal Hysterectomy Preventative Testing( ) 02/28/2024 Albumin 3.9 G/DL( ) 02/28/2024 HAIC 6.1 % H( ) 09/21/2023 Optometry( ) 08/23/2023 Micro Albumin 10.3 UG/ML(X) 09/08/2022 DEXA Scan 09/08/2024( ) 03/27/2021 Upper Endoscopy( ) 03/04/2020 Colonoscopy (5 Years) 03/04/2025( ) 12/22/2008 CT Thorax, Abdomen And Pelvis Social HistoryDoes not smoke but drinks socially. Family HistoryMother at 48 ovarian CAFather at 62 from ASHDFour sisters two (murdered) and another from a stroked. The rest in good health. One brother from CRF TEST RESULT RANGE UNITSCBC WITH DIFFERENTIAL/PLATELET Date: 02/28/2024WBC 9.3 3.4-10.8 X10E3/ULHEMOGLOBIN 12.3 11.1-15.9 G/DLHEMATOCRIT 40.0 34.0-46.6 %PLATELETS 295 150-450 X10E3/ULCOMP. METABOLIC PANEL (14) Date: 02/28/2024SODIUM 139 134-144 MMOL/LPOTASSIUM 4.9 3.5-5.2 MMOL/LGLUCOSE 95 70-99 MG/DLBUN 15 8-27 MG/DLCREATININE 0.70 0.57-1.00 MG/DLEGFR 93 >59 ML/MIN/1.73ALKALINE PHOSPHATASE 76 44-121 IU/LAST (SGOT) 15 0-40 IU/LALT (SGPT) 10 0-32 IU/LHEMOGLOBIN A1C Date: 02/28/2024HEMOGLOBIN A1C 6.1 4.8-5.6 %LIPID PANEL Date: 02/28/2024HOLESTEROL, TOTAL 141 100-199 MG/DLTRIGLYCERIDES 93 0-149 MG/DLHDL CHOLESTEROL 55 >39 MG/DLLDL CHOL CALC (NIH) 69 0-99 MG/DL Carlos Pollack MD [address] [facility] [address], [place], [address], [facility] [employer] 09/25/2024 12:02:33 5 text/htm l Patient Name: Jaimee Ballard Of Service: Tuesday ( 12.03.2024 ): 1955 Age: 69 Vital Signs:Blood Pressure: Sitting Rt. Arm 122/78Pulse: Sitting 109 /min and RegularRespiratory Rate: 12Height 65 in or 1.7 mWeight 240 lb or 108.9 kgBMI 39.9Temperature: 97 F or 36.1 CPulse Oximetry: 95 % at rest on no oxygen Chief Complaint: Addressed in HPI Problems or conditions discussed in the HPI were the only ones reviewed during the encounter.Only social and family history addressed in the HPI were reviewed during this encounter. Attendants(s) + NoneConstitutional and Systemic Symptoms:none Medication Reconciliation: from medication list. History of Present Illness #1. Skin lesion on the right lower leg duration approximately one week. Started as a small nodule has increased in size. Mildly painful with some mild surrounding erythematous changes. Will cover with some antibiotics if no improvement will request for surgical excision.: Active Medication ListVitamin B12 5000 MCG Once DailyMultivitamin Once DailyAtivan 0.5 MG (TABLET - ORAL) One Tid Prn For AnxietyAtorvastatin Calcium 40 MG (TABLET - ORAL) One Daily Hs For CholesterolLosartan Potassium 25 MG TABLET Once DailyBiotin 5000 MCG Once DailyMounjaro 2.5 MG/.5ML INJECTION, SOLUTION Once WeeklyMetformin Hydrochloride 500 MG (TABLET - ORAL) One Bid Carlos Pollack MD [address] [facility], [facility] [address], [place], [address], [facility] [employer] 12/03/2024 15:57:46 5 text/htm l Patient Name: Jaimee Ballard Of Service: Tuesday ( 03.26.2025 ): 1955 Age: 70 There has been approximately a 2 lb weight gain since 12/03/2024. This represents approximately a .8% change in weight. Weight change attributable to lifestyle changes. Vital Signs:Blood Pressure: Sitting Rt. Arm 120/74Pulse: Sitting 90 /min and RegularRespiratory Rate: 16Height 65 in or 1.7 mWeight 242 lb or 109.8 kgBMI 40.3Temperature: 97.2 F or 36.2 CPulse Oximetry: 95 % at rest on no oxygen Chief Complaint: Addressed in HPI Problems or conditions discussed in the HPI were the only ones reviewed during the encounter.Only social and family history addressed in the HPI were reviewed during this encounter. A significant, separate E/M service was performed to evaluate the current and new problems. Attendants(s) + NoneConstitutional and Systemic Symptoms:none Medication Reconciliation: from medication list. [id number]: CT PET scan of the cardiac showed nonspecific abnormality. Normal ECG with no ischemic ST or T-wave changes following vasodilator infusion. In the FR is considered slightly abnormal. Abnormal imaging of the apical inferior region with severe perfusion defect which is small in size and appears fixed. Also imaging defects are noted in the lateral region with moderate perfusion defect which again appears to be fixed. 09-06-2024: Cardiac catheterization showed a 40-50% stenosis of the left main. Not considered to be Hemodynamically significant. There is also 65% stenosis of the right coronary artery. History of Present Illness Reviewed the findings of the preventative health visit. Addressed all areas with the patient, patient's family or caregivers. Preventative examinations and testing immunizations - vaccinations, colonic neoplasm screening, mammograms and DEXA Scan all reviewed and ordered where patient was amenable to the recommendations. Cognitive function see HPI but demonstrated no overall change in cognitive status . Depression addressed and where necessary medications were adjusted or instituted. End of life and living will briefly discussed with patient and where these can be filled out and legally executed. Other blood and imaging studies were ordered if considered necessary. Other recommendations may be found in the encounter note. #1. Coronary Artery Disease: There has been no change in frequency - duration - intensity in frequency, duration or intensity of chest pain. Other Complaints: none The frequency of anginal attacks is none at all. Additional Symptoms: none Therapy reviewed regarding cardiovascular management includes Atorvastatin Calcium and Losartan Potassium #2. Essential Hypertension: Stage: Stage I Interval Neurological Complaints no headaches, dizziness, weakness, visual changes, ataxia, aphasia and apraxia. No shortness of breath, orthopnea or cardiovascular symptoms. No other symptoms related to end organ damage. Pressure has been under fair control. Currently normal. No other end organ symptoms or findings. Therapy reviewed regarding management of hypertension and includes salt restriction and Losartan Potassium. #3. Type II Hypercholesterolaemia: Currently taking medication and tolerating well. No interval complaints of any muscle pain or arthralgia. No significant liver changes with medications. Last lipid panel: excellent control. Therapy reviewed regarding treatment of cholesterol management and include diet and Atorvastatin Calcium. #4. Hx of obesity. Currently Class 3 Obesity [place] > 40. Has tried numerous dietary support and supplements with no benefit. Instructed on the health consequences of the obese status particularly cancer - diabetes and heart disease. Discussed other modalities of weight loss no . Potential candidate for bariatric surgery: No. Wishes to be evaluated by Dietary: No and was offered to be evaluated and instructed by carbon rod inserter on weight loss diet.#5. Diabetes clinically stable taking metformin. Last hemoglobin A1c was 6.1. No change in frequency duration or intensity of any urinary problems. No history of any polyuria polydipsia or polyphagia. Wellness Evaluation PHQ-2 Score Last Two Weeks Last Two Weeks: 0: Not at all 1: Several Days 2: More than half 3: Almost Every day #1. Little interest or pleasure in doing things: Not At All :Score 0#2. Feeling down, depressed, or hopeless: Not At All :Score 0Minimal or no Depression 0Function Status Staging: No demonstrable functional decline Basic ADLS Ambulation: NormalGrooming: General Personal Hygiene NormalToiletry: Self SufficientDressing: Dresses Without AssistanceEating: Self Sufficient Instrumental ADLS Managing Finances YesManaging Health YesShopping YesPreparing Meals YesUsing Technology YesHouse Work YesTaking Care of Pets YesTaking Care Children YesTransportation Yes Additional Topics Advanced Directives: DeclinedLiving Will: DeclinedCode Status: Full Code Additional Comments Topics listed or those only pertinent to the patient or care givers. Mini Mental Status Exam Orientation: Year + Season + Month + Date + Day + Score: 5Location: Country + County + City + Facility + Room + Score: 5Registration: House + Car + Airplane + Score: 3Attention: D + L + R + O + W + Score: 5Recall: House + Car - Airplane - Score: 1Language: Watch + Pencil + Score: 2Repetition: No ifs, ands, or buts + Score: 1Sentence: Write a Sentence + Sentence: Good morning sunshine.Score: 1Reading: Close Eyes + Score: 1Pentagons: Copy Design + Score: 1Command: Hand + Fold In Half + Put Down + Score: 3 Total Test Score: 28 /30 Normal Possible Functional ImpairmentActivities of Daily Living: Probably NormalCommunication: Probably NormalMemory: Probably Normal Social and Physical Activities Drinking History: 2-5 Drinks per weekExercise 20 Minutes per Week: Yes, some of timeDifficulty Driving Car: NoOther Problems:NoneSmoking History: Does not smokeCannabis History: Does Not UseVaping History: Does Not Vape Active Medication ListVitamin B12 5000 MCG Once DailyMultivitamin Once DailyAtivan 0.5 MG (TABLET - ORAL) One Tid Prn For AnxietyAtorvastatin Calcium 40 MG (TABLET - ORAL) One Daily Hs For CholesterolLosartan Potassium 25 MG TABLET Once DailyBiotin 5000 MCG Once DailyMetformin Hydrochloride 500 MG (TABLET - ORAL) One Bid Adverse Drug Reactions ReviewedPenicillin RashAldactone Hyperkalemia Vaccination and Immunization(X) 2023-01 INFLUENZA( ) 2009-04 H1N1( ) 2009-04 ZOSTAVAX (SHINGLES)( ) 2019-02 PCV13( ) 2020-06 COVID MODERNA( ) 2020-02 PNEUMOVAX(X) 2021-03 COVID BOOSTER MODERNA(X) PCV20 or PCV21 Recommended(X) RSV Recommended(X) Shingrix Recommended(X) Tetanus or TD RecommendedImmunizations and Vaccinations Discussed and Implemented if feasible In the Office. Else referred to pharmacies. Surgical Jjmnnoh2237-57 Cardiac Evwo9477-79 Coronary Yispee5287-60 Bilateral Otlsiliyipee5157-73 Ventral Jywzuz0755-35 Lap Mtnjfoqueszxmyh9573-90 Bjnnnudvxve3900-69 Abdominal Hysterectomy Preventative Testing: (X) Due (?) Optional( ) 02/28/2024 Albumin 3.9 G/DL( ) 02/28/2024 HAIC 6.1 % H( ) 09/21/2023 Optometry( ) 08/23/2023 Micro Albumin 10.3 UG/ML(X) 09/08/2022 DEXA Scan 09/08/2024( ) 03/27/2021 Upper Endoscopy(X) 03/04/2020 Colonoscopy (5 Years) 03/04/2025( ) 12/22/2008 CT Thorax, Abdomen And PelvisPreventative Testing Discussed with Patient and Attendants Social HistoryDoes not smoke but drinks socially. Family HistoryMother at 48 ovarian CAFather at 62 from ASHDFour sisters two (murdered) and another from a stroked. The rest in good health. One brother from [facility] Carlos Pollack MD [address] [facility], [facility] [address], [place], [address], [facility] [employer] 03/26/2025 11:30:51 OBGyn Episode No OBEpisode recorded.
[2025-04-05 12:20] VITALS: BP 180/81; PULSE 96; RESP 16; TEMP 36.2; O2SAT 96; BMI 39.6
[2025-04-05] MEDS: LACTATED RINGERS 1,000 ML 150 ML IV CONT (12:35)
--- NOTE | 2025-04-05 13:30 | WPDANESEPPF ---
Anes - Initial Pre Proc Eval Procedure: Operation Date: 04/05/25 13:30 Proposed Procedures p Diagnostic Colonoscopy - Bruno Ferrari MD Date/Time: 04/05/25 13:30 Surgeon: Bruno Ferrari MD Pre Op Diagnosis: Other hemorrhoids Patient Data Age: 70 Gender: F Height: 1.65 m Weight: 108 kg Last Vital Signs Temp 36.2 C L 04/05/25 12:20 Pulse 96 04/05/25 12:20 Resp 16 04/05/25 12:20 BP 180/81 H 04/05/25 12:20 Pulse Ox 96 04/05/25 12:20 O2 Del Method Room Air 04/05/25 12:20 Allergies Allergy/AdvReac Type Severity Reaction Status Date / Time Penicillins Allergy Unknown UNKNOWN Verified 04/05/25 12:18 Home Medications ?Medication ?Instructions ?Recorded ?Confirmed ?Type atorvastatin 40 mg tablet 40 mg PO DAILY 02/27/20 04/05/25 History biotin 2,500 mcg capsule 2,500 mcg PO DAILY 02/27/20 04/05/25 History mecobalamin (vitamin B12) 1,000 500 mcg PO DAILY 02/27/20 04/05/25 History mcg chewable tablet metformin 500 mg tablet 500 mg PO BID 02/27/20 04/05/25 History losartan 25 mg tablet 25 mg PO DAILY 12/24/24 04/05/25 History wuwfdrqg-ozuo-qfou 8 mg-folic 400 1 tablet PO DAILY 12/24/24 04/05/25 History mcg-K 50 mcg-lutein 300 mcg tablet (Centrum Silver Women) Laboratory Tests 04/05/25 12:28 POC Capillary Glucose 90 mg/dl (65-105) Patient hx anesthesia problems: none Family hx anesthesia problems: none Results Review: All pre-operative results and documents have been reviewed as part of the pre-operative evaluation. [facility] Past Medical History Medical History Diabetes Breast cancer, left breast history of in the past Hyperlipidemia Hypertension CAD (coronary artery disease) Surgical History Surgical History History of excision of lesion 12/31/2024 Excision right lower extremity skin lesion with 5cm intermediate layered wound closure. Hx of bilateral mastectomy Hx of hysterectomy Stented coronary artery Family History Family History Mother Cancer Hypertension Father Cancer Heart disease Sibling Cancer Social History Social History Smoking packs per day: 0.5 Smoking cigarettes per day: 10.0 Years smoked: 5 Smoking pack-years: 2.50 Tobacco type: cigarettes Smoking end date: 12/24/84 Alcohol intake: current Drinks per week: 0 Alcohol use details: MAY HAVE 1 DRINK EVERY COUPLE OF MONTHS Substance use: never Substance use type: does not use Current Housing: Decline to Answer Concerned About Future Housing: Decline to Answer Difficulty Paying Gas/Electric Bills: Decline to Answer Difficulty Paying for Meds: Decline to Answer Currently Unemployed: Decline to Answer Education: Decline to Answer Difficulty w/ Childcare or Family Care: Decline to Answer Living arrangements: with family Occupation/Education: retired Spiritual care concerns: No Agree to blood products: Yes Anes - Eval Final PreProcedure Day of Procedure 04/05/25 13:30 Patient weight: obese Heart: regular rate and rhythm Lungs: clear to auscultation Airway: Mallampati scale class II Neurological: alert and oriented Last oral intake: >/= 8 hours ASA classification: III Emergent: no Anesthetic plan: proceed Anesthesia type and monitoring: general GIVS and standard monitoring Results Review: All pre-operative results and documents have been reviewed as part of the pre-operative evaluation. Informed Consent: The patient's anesthetic plan and its attendant risks and benefits were discussed with the patient/family/POA. Questions were solicited and answers provided to the satisfaction of the patient/family/POA.
--- NOTE | 2025-04-05 13:53 | PM.IMHP ---
H&P: HPI History of Present Illness Date/Time: 04/05/25 13:53 Chief Complaint: History of colon polyps Narrative: The patient has a history of colonic polyps, the last colonoscopy was around 7 years ago. Review of Systems Review of Systems: All systems reviewed & are unremarkable except as noted in HPI and below PMFSH Past Medical History Medical History Diabetes Breast cancer, left breast history of in the past Hyperlipidemia Hypertension CAD (coronary artery disease) Surgical History Surgical History History of excision of lesion 12/31/2024 Excision right lower extremity skin lesion with 5cm intermediate layered wound closure. Hx of bilateral mastectomy Hx of hysterectomy Stented coronary artery Family History Family History Mother Cancer Hypertension Father Cancer Heart disease Sibling Cancer Social History Social History Smoking packs per day: 0.5 Smoking cigarettes per day: 10.0 Years smoked: 5 Smoking pack-years: 2.50 Tobacco type: cigarettes Smoking end date: 12/24/84 Alcohol intake: current Drinks per week: 0 Alcohol use details: MAY HAVE 1 DRINK EVERY COUPLE OF MONTHS Substance use: never Substance use type: does not use Current Housing: Decline to Answer Concerned About Future Housing: Decline to Answer Difficulty Paying Gas/Electric Bills: Decline to Answer Difficulty Paying for Meds: Decline to Answer Currently Unemployed: Decline to Answer Education: Decline to Answer Difficulty w/ Childcare or Family Care: Decline to Answer Living arrangements: with family Occupation/Education: retired Spiritual care concerns: No Agree to blood products: Yes Meds Home Medications and Allergies Home Medications ?Medication ?Instructions ?Recorded ?Confirmed ?Type atorvastatin 40 mg tablet 40 mg PO DAILY 02/27/20 04/05/25 History biotin 2,500 mcg capsule 2,500 mcg PO DAILY 02/27/20 04/05/25 History mecobalamin (vitamin B12) 1,000 500 mcg PO DAILY 02/27/20 04/05/25 History mcg chewable tablet metformin 500 mg tablet 500 mg PO BID 02/27/20 04/05/25 History losartan 25 mg tablet 25 mg PO DAILY 12/24/24 04/05/25 History vesotqon-juja-lerr 8 mg-folic 400 1 tablet PO DAILY 12/24/24 04/05/25 History mcg-K 50 mcg-lutein 300 mcg tablet (Centrum Silver Women) Allergies Allergy/AdvReac Type Severity Reaction Status Date / Time Penicillins Allergy Unknown UNKNOWN Verified 04/05/25 12:18 Vital Signs Vital Signs - 24 hr 04/05/25 12:20 Temperature 97.1 F L Pulse Rate 96 Respiratory Rate 16 Blood Pressure 180/81 H Pulse Oximetry 96 Oxygen Delivery Room Air Exam Const: General: cooperative and healthy appearing Resp: Effort & Inspection: normal respiratory effort and able to speak in complete sentences Auscultation: clear to auscultation bilaterally Cardio: Rate: regular rate Rhythm: regular rhythm GI: Inspection: normal to inspection GI Palp: No No hepatosplenomegaly present Auscultation: normal bowel sounds Rectal Exam: deferred Skin: General skin exam: normal color Psych: Appearance: grossly normal Mental Status: mental status grossly normal Assessment and Plan Assessment and plan (1) History of colon polyps: Code(s): Z86.010 - Personal history of colon polyps Status: Acute Assessment and Plan: The patient is deemed a good candidate for the procedure. Consent signed. Will proceed.
--- NOTE | 2025-04-05 14:25 | S_PTH ---
PATIENT: Jaimee Grimm LOC: [facility]#:[id number] AGE/SX: 70/F ROOM: RE04/05/[address]: Bruno Ferrari MD : 1955 BED: DIS: 04/05/2025 SPEC #: [id number] RECD: 04/08/25 08:24 STATUS: AMADOR REQ #: [id number] SANTHOSH: 04/05/25 14:[address]: Bruno Ferrari DEPT: [facility] Surgical RECD BY: Felicitas Goff ENTERED: 04/08/25 08:25 SP TYPE: Surgical OTHR DR: Carlos Pollack, Tissues: A - Colon Polypectomy Procedures: Hematoxylin and Eosin Stain Gross and Microscopic Level 4
[2025-04-05 14:27] VITALS: BP 111/57; PULSE 83; RESP 20; O2SAT 97
[2025-04-05 14:37] VITALS: BP 127/59; PULSE 83; RESP 22; O2SAT 96
[2025-04-05 14:47] VITALS: BP 146/73; PULSE 77; RESP 22; O2SAT 98
== END 2025-04-05 14:57 | disposition home or self-care (01) ==
PROVIDERS: PCP Internal Medicine; Referring Provider Internal Medicine; Visit Provider Internal Medicine Gastroenterology
PROC: 0DJD8ZZ Inspection of Lower Intestinal Tract, Via Natural or Artificial Opening Endoscopic (ICD-10-PCS; CPT 45378; principal; 2025-04-05 13:30)
DX: Z12.11 Encounter for screening for malignant neoplasm of colon (principal); D12.0 Benign neoplasm of cecum; E78.5 Hyperlipidemia, unspecified; I10 Essential (primary) hypertension; E11.9 Type 2 diabetes mellitus without complications; I25.10 Atherosclerotic heart disease of native coronary artery without angina pectoris; E66.9 Obesity, unspecified; Z68.39 Body mass index [BMI] 39.0-39.9, adult; Z79.84 Long term (current) use of oral hypoglycemic drugs; Z98.890 Other specified postprocedural states; Z90.13 Acquired absence of bilateral breasts and nipples; Z95.5 Presence of coronary angioplasty implant and graft; Z87.891 Personal history of nicotine dependence; Z85.3 Personal history of malignant neoplasm of breast; Z80.9 Family history of malignant neoplasm, unspecified; Z82.49 Family history of ischemic heart disease and other diseases of the circulatory system
CPT/HCPCS: 45385; 82948; 88305; J2003; J2704; J7120